=== PATIENT | female | born 1980 | race Caucasian/White ===

== ENCOUNTER 2021-03-24 18:21 | Inpatient (IN) | payer MEDICAID, OTHER ==
--- NOTE | 2021-03-24 19:28 | ED ---
General Adult HPI - General Source: patient, police, RN notes reviewed, old records reviewed Mode of arrival: ambulatory Limitations: altered mental status <Obi Srivastava - Last Filed: 03/24/21 22:25> <Prince Thomas - Last Filed: 03/25/21 02:43> - General Chief complaint: Psychiatric Symptoms Stated complaint: mental health Time Seen by Provider: 03/24/21 18:55 - History of Present Illness Initial comments: 40-year-old female brought in by police for psychiatric evaluation. She has been petitioned by her mother. There is concern for paranoia, possible self- harm. Patient is hyperverbal. Unable to give a clear history from the patient. (Obi Srivastava) - Related Data Home Medications Medication Instructions Recorded Confirmed ALPRAZolam [Xanax] 0.5 mg PO TID 03/24/21 03/24/21 Albuterol Nebulized [Ventolin 2.5 mg INHALATION RT-TID PRN 03/24/21 03/24/21 Nebulized] Albuterol Sulfate [Proair Hfa] 2 puff INHALATION RT-Q4H PRN 03/24/21 03/24/21 Atorvastatin [Lipitor] 40 mg PO HS 03/24/21 03/24/21 Benzoyl Peroxide 1 applic TOPICAL DAILY 03/24/21 03/24/21 Chantix 0.5mg Tablet 0.5 mg PO BID 03/24/21 03/24/21 FLUoxetine HCL [PROzac] 20 mg PO DAILY 03/24/21 03/24/21 Fluticasone Nasal [place] [Flonase 1 spray EA NOSTRIL DAILY 03/24/21 03/24/21 Nasal [place]] Loratadine [Claritin] 10 mg PO DAILY 03/24/21 03/24/21 Omeprazole 20 mg PO DAILY 03/24/21 03/24/21 Review of Systems ROS Other: All systems not noted in ROS Statement are negative. <Obi Srivastava - Last Filed: 03/24/21 22:25> ROS Other: All systems not noted in ROS Statement are negative. <Prince Thomas - Last Filed: 03/25/21 02:43> ROS Statement: Those systems with pertinent positive or pertinent negative responses have been documented in the HPI. Past Medical History Past Medical History: Unable to Obtain History of Any Multi-Drug Resistant Organisms: None Reported Past Surgical History: Unable to Obtain Past Psychological History: Bipolar, Schizophrenia Smoking Status: Former smoker Past Alcohol Use History: None Reported Past Drug Use History: None Reported <Obi Srivastava - Last Filed: 03/24/21 22:25> General Exam Limitations: altered mental status General appearance: alert, anxious Head exam: Present: atraumatic, normocephalic Eye exam: Present: normal appearance, PERRL ENT exam: Present: normal exam Neck exam: Present: normal inspection. Absent: tenderness, meningismus Respiratory exam: Present: normal lung sounds bilaterally. Absent: respiratory distress, wheezes Cardiovascular Exam: Present: normal rhythm, tachycardia GI/Abdominal exam: Present: soft. Absent: distended, tenderness, guarding Extremities exam: Present: normal inspection, normal capillary refill. Absent: pedal edema Neurological exam: Present: alert. Absent: motor sensory deficit Psychiatric exam: Present: agitated, anxious, manic Skin exam: Present: warm, dry, intact. Absent: cyanosis, diaphoretic <Obi Srivastava - Last Filed: 03/24/21 22:25> Course <Obi Srivastava - Last Filed: 03/24/21 22:25> <Prince Thomas - Last Filed: 03/25/21 02:43> Vital Signs 03/24/21 03/24/21 03/24/21 18:24 20:29 20:37 Temperature 97.4 F L Pulse Rate 95 120 H 116 H Respiratory 18 Rate Blood Pressure 157/84 O2 Sat by Pulse 99 Oximetry - Reevaluation(s) Reevaluation #1: 03/24/21 2300 Care signed out at shift change to Dr. Thomas awaiting EPS evaluation and treatment. (Obi Srivastava) Reevaluation #2: 03/25/21 02:43 Medical clear for psychiatric evaluation (Prince Thomas) Medical Decision Making <Prince Thomas - Last Filed: 03/25/21 02:43> - Medical Decision Making 40 female seen and evaluated psychiatry, patient be admitted for psychiatric evaluation and treatment (Prince Thomas) - Lab Data Lab Results 03/24/21 Range/Units 19:26 Urine Opiates Screen Not Detected (NotDetected) Ur Oxycodone Screen Not Detected (NotDetected) Urine Methadone Screen Not Detected (NotDetected) Ur Propoxyphene Screen Not Detected (NotDetected) Ur Barbiturates Screen Not Detected (NotDetected) U Tricyclic Antidepress Not Detected (NotDetected) Ur Phencyclidine Scrn Not Detected (NotDetected) Ur Amphetamines Screen Detected H (NotDetected) U Methamphetamines Scrn Detected H (NotDetected) U Benzodiazepines Scrn Detected H (NotDetected) Urine Cocaine Screen Not Detected (NotDetected) U Marijuana (THC) Screen Not Detected (NotDetected) Disposition <Obi Srivastava - Last Filed: 03/24/21 22:25> Is patient prescribed a controlled substance at d/c from ED?: No <Prince Thomas - Last Filed: 03/25/21 02:43> Clinical Impression: Psychosis, Monopolar missy Disposition: TRANSFER TO PSYCH HOSP/UNIT Condition: Fair Referrals: Vic Porras DO [Primary Care Provider] - 1-2 days
[2021-03-24 19:50] LABS: Amphetamine Screen,Urine Detected (NotDetected); Barbiturate Screen,Urine Not Detected (NotDetected); Benzodiazepines Screen,Urine Detected (NotDetected); Cocaine Screen,Urine Not Detected (NotDetected); Methadone Screen, Urine Not Detected (NotDetected); Opiate Screen,Urine Not Detected (NotDetected); Oxycodone Screen, Urine Not Detected (NotDetected); Phencyclidine Screen,Urine Not Detected (NotDetected); Tricyclic Antidepressant,Urine Not Detected (NotDetected); Urn Cannabinoid Scrn Not Detected (NotDetected)
[2021-03-24] MEDS ORDERED: ALBUTEROL NEBULIZED 2.5 MG/3 ML INHALATION STA (20:20)
[2021-03-24] MEDS ORDERED: LORazepam 2 MG/ML INJ IM STA (20:20)
[2021-03-24] MEDS ORDERED: NICOTINE 21MG/24HR PATCH TRANSDERM STA (22:40)
[2021-03-24] MEDS ORDERED: LORazepam 1 MG TAB PO STA (22:40)
[2021-03-25] MEDS ORDERED: MAGNESIUM HYDROXIDE 2,400 MG/10 ML CUP PO PRN (04:16)
[2021-03-25] MEDS ORDERED: LORazepam 2 MG/ML INJ IM PRN (04:16)
[2021-03-25] MEDS ORDERED: HALOPERIDOL LACTATE 5 MG/ML 1 ML VIAL IM PRN (04:16)
[2021-03-25] MEDS: ALBUTEROL HFA INHALER INHALATION PRN ×3 (05:31→21:17)
--- NOTE | 2021-03-25 06:33 | P.PN ---
Progress Note - Text Progress Note Date: 03/25/21 patient is currently sleeping and will be evaluated when awake
[2021-03-25] MEDS: LORATADINE 10 MG TAB PO SCH (08:14)
[2021-03-25] MEDS: FLUTICASONE 50MCG/SPRAY NASAL 16GM EA NOSTRIL SCH (08:15)
[2021-03-25] MEDS ORDERED: FLUoxetine HCL 20 MG CAP PO SCH (09:00)
[2021-03-25] MEDS ORDERED: VARENICLINE 0.5 MG TAB PO SCH (09:00)
[2021-03-25] MEDS ORDERED: NICOTINE 14MG/24HR PATCH TRANSDERM SCH (09:00)
[2021-03-25] MEDS ORDERED: traZODone HCL 50 MG TAB PO PRN (11:39)
[2021-03-25 11:47] LABS: Basophils # (A) 0.1 k/uL (0-0.2); Basophils % (A) 1 %; Eosinophils # (A) 0.1 k/uL (0-0.7); Eosinophils % (A) 1 %; HCT 37.8 % (34.0-46.0); HGB 13.1 gm/dL (11.4-16.0); Lymphocytes % (A) 19 %; MCH 32.2 pg (25.0-35.0); MCHC 34.8 g/dL (31.0-37.0); MCV 92.7 fL (80.0-100.0); Mean Platelet Volume 8.1; Monocytes # (A) 0.5 k/uL (0-1.0); Monocytes % (A) 4 %; Neutrophils # (A) 7.9 k/uL (1.3-7.7); Neutrophils % (A) 74 %; Platelet Count 309 k/uL (150-450); RBC 4.08 m/uL (3.80-5.40); RDW 13.3 % (11.5-15.5); WBC 10.7 k/uL (3.8-10.6)
[2021-03-25 12:13] LABS: ALT 51 U/L (4-34); AST 46 U/L (14-36); African American GFR (CKD) >90 (>60 ml/min/1.73 sqM); Albumin 4.2 g/dL (3.5-5.0); Alkaline Phosphatase 113 U/L (38-126); Anion Gap 8 mmol/L; Bilirubin,Unconjugated 0.5 mg/dL (0.0-1.1); Blood Urea Nitrogen 12 mg/dL (7-17); Calcium 9.9 mg/dL (8.4-10.2); Carbon Dioxide 21 mmol/L (22-30); Chloride 109 mmol/L (98-107); Glucose 102 mg/dL (74-99); Non-African American GFR(CKD) >90 (>60 ml/min/1.73 sqM); Potassium 4.2 mmol/L (3.5-5.1); Sodium 138 mmol/L (137-145); Total Bilirubin 0.5 mg/dL (0.2-1.3); Total Protein 6.7 g/dL (6.3-8.2)
[2021-03-25] MEDS: NICOTINE 14MG/24HR PATCH TRANSDERM SCH (13:09)
[2021-03-25] MEDS: LORazepam 1 MG TAB PO PRN ×2 (13:09→22:22)
[2021-03-25] MEDS: PALIPERIDONE 3 MG TAB.ER.24 PO SCH (13:09)
--- NOTE | 2021-03-25 13:35 | P.HP ---
Psychiatric H&P - . H&P Date: 03/25/21 History & Physical: Allergies Allergy/AdvReac Type Severity Reaction Status Date / Time No Known Allergies Allergy Verified 03/25/21 04:16 Vital Signs Temp 97.9 F 03/25/21 09:18 Pulse 85 03/25/21 04:58 Resp 18 03/25/21 04:58 BP 152/79 03/25/21 04:58 Pulse Ox 99 03/25/21 04:58 Intake & Output 03/24/21 03/25/21 03/25/21 18:59 06:59 18:59 Weight 74.843 kg 80.286 kg Laboratory Last Values Urine Opiates Screen Not Detected (NotDetected) 03/24/21 19:26 Ur Oxycodone Screen Not Detected (NotDetected) 03/24/21 19:26 Urine Methadone Screen Not Detected (NotDetected) 03/24/21 19:26 Ur Propoxyphene Screen Not Detected (NotDetected) 03/24/21 19:26 Ur Barbiturates Screen Not Detected (NotDetected) 03/24/21 19:26 U Tricyclic Antidepress Not Detected (NotDetected) 03/24/21 19:26 Ur Phencyclidine Scrn Not Detected (NotDetected) 03/24/21 19:26 Ur Amphetamines Screen Detected (NotDetected) H 03/24/21 19:26 U Methamphetamines Scrn Detected (NotDetected) H 03/24/21 19:26 U Benzodiazepines Scrn Detected (NotDetected) H 03/24/21 19:26 Urine Cocaine Screen Not Detected (NotDetected) 03/24/21 19:26 U Marijuana (THC) Screen Not Detected (NotDetected) 03/24/21 19:26 Coronavirus (PCR) Not Detected (Not Detectd) 03/25/21 02:10 03/25/21 11:41 IDENTIFYING DATA: Patient is a 40 -year-old female currently lives in a house with her boyfriend, has no kids and currently works as an entertainment organizer. HPI: Patient presented to the hospital yesterday prodded by the police for a psychiatric evaluation. Patient was petitioned by her mother. Patient apparently was paranoid and possibly "self-harm" was reported in the ER note. Is also reported the patient was hyperverbal. She had a UDS which was positive for methamphetamine and benzodiazepines. Patient was seen today by bid writer in the hallways and was hyperverbal, bizarre had poor hygiene however was agreeable to speak to bid writer. She was carrying around several papers in her hand and had pressured speech. She spoke about taking her boyfriend out of the house and "gi ving him many chances" and also spoke that he moved back in. She had mainly loose associations and made bizarre statements about her boyfriend and her parents. She spoke about her job and bucking "famous [employer]s". She denied adamantly using any drugs including methamphetamine. She states that her mood has been "okay" and is denying any depression at this time. She claims that she is having racing thoughts however has been having fair sleep and fair appetite. She has very poor insight and judgment. Patient denies any suicidal or homicidal ideations intent or plan. At this time patient denies any auditory or visual hallucinations. She admits to no recreational drug use. PAST PSYCHIATRIC HISTORY: Patient states that she has a history of bipolar, ADHD and panic attacks. Patient was previously on Prozac and Xanax claims that she was being prescribed this by her PCP. Patient denies any previous psychiatric hospitalizations. Patient denies any psychiatric outpatient follow-up. Patient denies any history of suicide attempts in the past. She claims that she is at "many therapists" in the past. PMH:denies ALLERGIES: as per EMR CHEMICAL DEPENDENCY HISTORY: as per HPI FAMILY PSYCHIATRIC/SUBSTANCE USE HISTORY: Claims that her father was a drug abuser. SOCIAL HISTORY: Patient was born and raised in [facility]. She states that she completed up to ninth grade in school. She is denying any legal history. She states that she currently lives in a house with her boyfriend has no kids and works as an entertainment organizer. MENTAL STATUS EXAM: General Appearance: Patient appears to be disheveled appearance, poor hygiene and grooming, older than stated age is alert, difficult to redirect and bizarre. Patient appears to have poor hygiene and grooming. Behavior: Patient is seated without any agitated behavior. Bizarre and intrusive Speech: Patient's speech is pressured Mood/Affect: Patient reports their mood is "okay", affect is congruent and labile Suicidality/Homicidality: Patient denies having any homicidal ideation intent or plan. Denies any suicidal ideations intent or plan Perceptions: Patient denies any visual hallucinations and denies any auditory hallucinations Though content/process: Patient is tangential, rambles. Loose associations. Bizarre statements. Memory and concentration: AOX3, grossly intact for the purposes of this session. Can spell "WORLD" backwards Judgment and insight: poor STRENGTHS/WEAKNESSES: strength is that patient is resilient. 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 Patient has signed adult voluntary form and medication consent and is placed in patient's chart. A second certification was completed and along with petition will be filed for court. -Medications : Will start patient on paliperidone by mouth 3 mg daily for mood stabilization/psychosis. Consider adding mood stabilizer including lithium versus Depakote tomorrow if needed. Added trazodone 50 mg daily at bedtime for sleep. -Ativan and Haldol PRN for agitation/aggression -Patient was counselled on substance abuse -Patient was informed of the risks, benefits and side effects of the medication and patient verbally consented to taking the medications. Patient signed med consent form and was placed in chart. -Internal Medicine consult to perform medical evaluation and physical. -NRT - nicotine patch -SW on board for discharge planning. Encourage patient to participate in groups to work on coping skills. Will await deferral and court date. 03/25/21 13:27
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
[2021-03-25 19:09] LABS: Chol/HDL Ratio 3.38; Cholesterol 186 mg/dL (0-200); LDL Cholesterol,Calculated 109.2 mg/dL (0.0-131.0)
[2021-03-25] MEDS: traZODone HCL 50 MG TAB PO SCH (21:16)
[2021-03-25] MEDS: ATORVASTATIN 10 MG TAB PO SCH (21:16)
[2021-03-25] MEDS: BACITRACIN OINT 1 EACH PACKET TOPICAL SCH ×2 (21:18→22:00)
[2021-03-25] MEDS: ACETAMINOPHEN TAB 325 MG TAB PO PRN (22:22)
[2021-03-25 23:00] LABS: Hemoglobin A1C 5.7 % (4.0-6.0)
[2021-03-26] MEDS: PALIPERIDONE 3 MG TAB.ER.24 PO SCH ×4 (08:37→20:59)
[2021-03-26] MEDS: NICOTINE 14MG/24HR PATCH TRANSDERM SCH (08:37)
[2021-03-26] MEDS: FLUTICASONE 50MCG/SPRAY NASAL 16GM EA NOSTRIL SCH (08:37)
[2021-03-26] MEDS: BACITRACIN OINT 1 EACH PACKET TOPICAL SCH ×3 (08:37→21:00)
[2021-03-26] MEDS: LORATADINE 10 MG TAB PO SCH (08:37)
[2021-03-26] MEDS: ALBUTEROL HFA INHALER INHALATION PRN ×2 (08:43→15:17)
[2021-03-26] MEDS: ACETAMINOPHEN TAB 325 MG TAB PO PRN ×2 (12:49→20:57)
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
[2021-03-26] MEDS: MAG HYDROX/AL HYDROX/SIMETH 30 ML CUP PO PRN (20:56)
[2021-03-26] MEDS: ATORVASTATIN 10 MG TAB PO SCH (20:57)
[2021-03-26] MEDS: traZODone HCL 50 MG TAB PO SCH (20:57)
[2021-03-27] MEDS: ALBUTEROL HFA INHALER INHALATION PRN ×4 (07:16→21:58)
[2021-03-27] MEDS: LORATADINE 10 MG TAB PO SCH (08:56)
[2021-03-27] MEDS: NICOTINE 14MG/24HR PATCH TRANSDERM SCH (08:56)
[2021-03-27] MEDS: PALIPERIDONE 3 MG TAB.ER.24 PO SCH ×3 (08:57→20:35)
[2021-03-27] MEDS: FLUTICASONE 50MCG/SPRAY NASAL 16GM EA NOSTRIL SCH (08:59)
[2021-03-27] MEDS: ACETAMINOPHEN TAB 325 MG TAB PO PRN ×2 (09:00→14:32)
[2021-03-27] MEDS: BACITRACIN OINT 1 EACH PACKET TOPICAL SCH ×3 (09:07→21:04)
--- NOTE | 2021-03-27 16:47 | PN ---
PROGRESS NOTE DATE OF SERVICE: 03/27/2021. CHIEF COMPLAINT: The patient had paranoid thinking. She had bizarre behavior. She was intense and hyperverbal. INTERVAL HISTORY: Patient has been doing fair. She has continued with a fair amount of intensity in her manner. She attended one group yesterday at 12:30. It was noted that she was quite intense in her manner. She was intrusive. She talked about safety issues and people not wanting to harm themselves or others. It is noted that this morning at 0:17 am, the patient received Haldol 4 mg p.o. for acute anxiety. She was noted to appear manic. She said the Haldol helped. Today, she has been up. She comes out in the day area. She attended one group today and seemed to do fairly well with that group having shown improvement over her previous group. She still has an intense manner. She will talk with some degree of pressured speech and flight of ideas. She is very insistent on the idea that she needs to be discharged. She thinks that her medications have been helping at least to some extent. When we talked about family issues, and I reviewed the conversation I had with the patient's sister, Natalia, the patient had a different viewpoint on most of the details. She said that when Natalia and her mother came to the house and felt that things were very disorganized, her view of it was that she was working to do a number of different things in her house to get things organized. The result was that there were a lot of different items that were all out together, though she was trying to put things in some kind of order. She was vague about the issues with the police being called and the subsequent events of that time. The sister had noted that she was apparently transporting the patient to the hospital. The patient said she had a different understanding of that situation. In the midst of it, she asked to stop to go to the bathroom and then she walked away. She said that she was misled by the family and she needed to gain some distance, though it was noted that the event did lead up to police being called and the patient somehow being chased down in the [place] before being brought to the hospital. The patient said that in regard to all of the things in the house that apparently were in disarray, she had a different review of all that and believed that she was doing things to take care of her personal business. She tolerates her psychotropic medications. MENTAL STATUS: Patient sat with some restlessness. She gave good eye contact. She responded to questions appropriately, though often she talked at length and sometimes seemed to ramble. She would seem to be in agreement about some basic aspects of things I presented to her, though then would go on and talk in a contrary way. Her affect was intense. Her mood dysphoric. She seemed moderately distressed. It was difficult to assess for thought disorder. She gave no indication of thoughts of harm. Cognition was clear. ASSESSMENT: I will continue the current diagnosis and treatment plan. I will continue Invega, though increase the dose to 6 mg twice a day. Patient continues to show apparent manic symptoms in the face of significant Xanax withdrawal. We reviewed issues related to withdrawal. I provided her with a number of handouts about withdrawal as well as nonpharmacologic interventions to manage withdrawal and other stress issues. We discussed discharge planning. We will focus on stabilization and discharge planning. SAMEER / YESSICA: [id number] /
[2021-03-27] MEDS: HALOPERIDOL LACTATE 5 MG/ML 1 ML VIAL IM PRN (18:32)
[2021-03-27] MEDS: ATORVASTATIN 10 MG TAB PO SCH (20:35)
[2021-03-27] MEDS: traZODone HCL 50 MG TAB PO SCH (20:35)
[2021-03-27] MEDS ORDERED: HALOPERIDOL LACTATE 5 MG/ML 1 ML VIAL IM STA (21:36)
[2021-03-27] MEDS ORDERED: LORazepam 2 MG/ML INJ IM STA (21:37)
[2021-03-28] MEDS: NICOTINE 14MG/24HR PATCH TRANSDERM SCH (08:58)
[2021-03-28] MEDS: BACITRACIN OINT 1 EACH PACKET TOPICAL SCH ×3 (08:58→20:13)
[2021-03-28] MEDS: LORATADINE 10 MG TAB PO SCH (08:58)
[2021-03-28] MEDS: FLUTICASONE 50MCG/SPRAY NASAL 16GM EA NOSTRIL SCH (08:58)
[2021-03-28] MEDS: PALIPERIDONE 3 MG TAB.ER.24 PO SCH ×2 (08:58→20:06)
[2021-03-28] MEDS: ALBUTEROL HFA INHALER INHALATION PRN ×3 (09:00→20:07)
[2021-03-28] MEDS: ACETAMINOPHEN TAB 325 MG TAB PO PRN ×2 (11:27→21:31)
[2021-03-28 17:57] LABS: Appearance,Urine Cloudy (Clear); Bacteria,Urine Rare /hpf; Bilirubin,Urine Negative (Negative); Blood,Urine Negative (Negative); Color,Urine Light Yellow; Glucose,Urine (UA) Negative (Negative); Ketones,Urine Negative (Negative); Leukocyte Esterase,Urine Negative (Negative); Nitrite,Urine Negative (Negative); PH, Urine 6.5 (5.0-8.0); Protein,Urine Negative (Negative); RBC,Urine 1 /hpf (0-5); Specific Gravity,Urine 1.017 (1.001-1.035); Squamous Epithelial Cell,Urine 8 /hpf (0-4); Urobilinogen,Urine <2.0 mg/dL (<2.0); WBC,Urine <1 /hpf (0-5)
[2021-03-28] MEDS: ATORVASTATIN 10 MG TAB PO SCH (20:06)
[2021-03-28] MEDS: traZODone HCL 50 MG TAB PO SCH (20:06)
--- NOTE | 2021-03-28 20:56 | PN ---
PROGRESS NOTE DATE OF SERVICE: 03/27/2021. CHIEF COMPLAINT: The patient had paranoid thinking. She had bizarre behavior. She was intense and hyperverbal. INTERVAL HISTORY: Patient has been doing fair. She generally seemed to do somewhat better yesterday. She comes out in the day area. She does socialize with others. At times, she can be somewhat intense and hyperverbal. She attended one group yesterday briefly. It is noted that at 630 in the evening she came to the door and said that she is feeling manic. She was quite intense. She was in a somewhat agitated state. She received Haldol 5 mg IM at 6:30 pm. She seemed to show some improvement after that. She continues on her Invega. She said she slept fairly well last night. Today she has been up. She attended 2 groups today and seemed to do fairly well in the groups. She seems to have a reserved manner more than not when she is in the group. It is noteworthy that today at 7 in the evening when I saw her, she said she has been feeling intense. She said she has been monitoring herself and says that about this time of day she tends to get wound up. She says she feels a little more contained today than she did yesterday, though recognizes that much of the feelings the same. She appears to tolerate her psychotropic medications. MENTAL STATUS: Patient sat with some restlessness. She gave fairly good eye contact. She answered questions with clear thoughts. It is noteworthy that she was just a little pressured in her speech. Her affect was intense. Her mood somewhat elevated and at other times seeming a little distressed. She shows signs of thought disorder relating to her bipolar condition. She voices no thoughts of harm. Cognition is clear. ASSESSMENT: I will continue the current diagnosis and treatment plan. The patient shows diurnal mood variation with elevated mood around early evening time. I will switch her Invega to 6 mg at 9 in the morning and 6 mg at 6 in the evening. We will see if the Invega helps bring down some of her intensity rather than needing to move towards p.r.n. I discussed medication issues including the change in her medication schedule. We will focus on stabilization and discharge planning. MMODL / IJN: [id number] /
[2021-03-28] MEDS: MAG HYDROX/AL HYDROX/SIMETH 30 ML CUP PO PRN (21:31)
[2021-03-29] MEDS: BACITRACIN OINT 1 EACH PACKET TOPICAL SCH ×3 (05:16→21:47)
[2021-03-29] MEDS: FLUTICASONE 50MCG/SPRAY NASAL 16GM EA NOSTRIL SCH (08:08)
[2021-03-29] MEDS: NICOTINE 14MG/24HR PATCH TRANSDERM SCH (08:09)
[2021-03-29] MEDS: LORATADINE 10 MG TAB PO SCH (08:09)
[2021-03-29] MEDS: PALIPERIDONE 3 MG TAB.ER.24 PO SCH (08:09)
[2021-03-29] MEDS: ALBUTEROL HFA INHALER INHALATION PRN (08:10)
--- NOTE | 2021-03-29 09:35 | P.PN ---
Progress Note - Text Progress Note Date: 03/29/21 Interval History: Patient was seen wandering the hallways and was directable and agreeable to benito rosen with feature writer in the office. Patient today was fairly bizarre and loose in associations with her thought process. She had a difficult time engaging in conversation and was acting fairly bizarre. She put down a piece of paper with a playing card that was cut in a specific design and when asked about it she was not able to explain what it meant. She states "it's a diagram". She claims that she was having racing thoughts and not able to sleep last night at all. At this time patient denies any suicidal or homical ideations, intent or plan. Patient denies any auditory, visual hallucinations. Patient has fairly poor insight and judgment. She believes that she does not need to be in the hospital. Patient denies any side effects from the medications and has been compliant with meds. Mental Status Exam: General Appearance: Patient appears to be overweight, stated age is alert, difficult to redirect and uncooperative Behavior: Patient is calmly seated without any agitated behavior. Bizarre Speech: Patient's speech is fluent and nonpressured. Mood/Affect: Mood is "okay", affect is congruent and constricted. Suicidality/Homicidality: Patient denies having any suicidal or homicidal ideation intent or plan. Perceptions: Patient denies any visual hallucinations and denies any auditory hallucinations Though content/process: Bizarre thought content. Loose associations. Rambles. Memory and concentration: AOX3, grossly intact for the purposes of this session Judgment and insight: Poor Assessment Psychosis unspecified History of bipolar disorder Methamphetamine abuse Nicotine dependence Plan: -Patient continues to meet criteria for inpatient psychiatric admission for symptom stabilization and safety. Patient has not signed adult voluntary form and medication consent and was placed in patient's chart. -Medications: Discontinued paliperidone at this time due to ineffectiveness and switch patient onto Prolixin 2 mg twice a day for psychosis. Increase trazodone to 100 mg daily at bedtime for sleep. -When necessary Ativan and Haldol for agitation/aggression. -NRT - nicotine patch -SW on board for discharge planning. Encouraged the patient to participate in milieu. The patient deferred with her clarifier operator helper.
[2021-03-29] MEDS: HALOPERIDOL LACTATE 5 MG/ML 1 ML VIAL IM PRN (20:16)
[2021-03-29] MEDS: ATORVASTATIN 10 MG TAB PO SCH (20:17)
[2021-03-29] MEDS ORDERED: LORazepam 2 MG/ML INJ IM PRN (20:31)
[2021-03-29] MEDS ORDERED: LORazepam 2 MG/ML INJ ONE (20:31)
[2021-03-29] MEDS ORDERED: traZODone HCL 100 MG TAB PO SCH (21:00)
[2021-03-30] MEDS: FLUTICASONE 50MCG/SPRAY NASAL 16GM EA NOSTRIL SCH (09:35)
[2021-03-30] MEDS: BACITRACIN OINT 1 EACH PACKET TOPICAL SCH ×3 (09:36→20:26)
[2021-03-30] MEDS: LORATADINE 10 MG TAB PO SCH (09:36)
[2021-03-30] MEDS: NICOTINE 14MG/24HR PATCH TRANSDERM SCH (09:36)
[2021-03-30] MEDS: ACETAMINOPHEN TAB 325 MG TAB PO PRN ×3 (10:00→23:29)
[2021-03-30] MEDS ORDERED: diphenhydrAMINE 25 MG CAP PO PRN (10:27)
--- NOTE | 2021-03-30 10:31 | P.PN ---
Progress Note - Text Progress Note Date: 03/30/21 Interval History: Patient was seen lying in her bed this morning and was directable and agreeable to speak with medical technical writer. Patient today appeared to be mildly more cooperative initially and less confused today. She was not responding to internal stimuli during the conversation. She appeared to be more appropriate. She was however fairly bizarre later on in conversation and was fairly argumentative with medical technical writer. She claims that "I didn't sign anything from the fruit dryer and I want to go to court". She claims that she feels the staff is "psychologically messing with me" and believes that they are changing around her room to "get in my head". Patient's insight and judgment continue to be fairly poor. She claims that she was having racing thoughts and not able to sleep last night at all. At this time patient denies any suicidal or homical ideations, intent or plan. Patient denies any auditory, visual hallucinations. She believes that she does not need to be in the hospital. Patient denies any side effects from the medications and has been compliant with meds. Mental Status Exam: General Appearance: Patient appears to be overweight, stated age is alert, initially cooperative however becomes bizarre and argumentative. Behavior: Patient is calmly seated without any agitated behavior. Bizarre at times, improving mildly Speech: Patient's speech is fluent and nonpressured. Mood/Affect: Mood is "okay", affect is congruent and constricted. Suicidality/Homicidality: Patient denies having any suicidal or homicidal ideation intent or plan. Perceptions: Patient denies any visual hallucinations and denies any auditory hallucinations Though content/process: Loose associations. Rambles, improving mildly, mild paranoia. Memory and concentration: AOX3, grossly intact for the purposes of this session Judgment and insight: Poor, improving mildly Assessment Psychosis unspecified History of bipolar disorder Methamphetamine abuse Nicotine dependence Plan: -Patient continues to meet criteria for inpatient psychiatric admission for symptom stabilization and safety. Patient has not signed adult voluntary form and medication consent and was placed in patient's chart. -Medications: Increased Prolixin 3 mg twice a day for psychosis. Increase trazodone to 150 mg daily at bedtime for sleep. Added Benadryl 25 mg daily at bedtime when necessary for sleep. -When necessary Ativan and Haldol for agitation/aggression. -NRT - nicotine patch -SW on board for discharge planning. Encouraged the patient to participate in milieu. The patient deferred with her associate attorney.
[2021-03-30] MEDS: ALBUTEROL HFA INHALER INHALATION PRN ×2 (17:22→21:31)
[2021-03-30] MEDS: ATORVASTATIN 10 MG TAB PO SCH (20:25)
[2021-03-30] MEDS: ARTIFICIAL TEARS-HYPROMELLOSE DROPS 15 ML BTL LEFT EYE PRN (20:25)
[2021-03-30] MEDS ORDERED: traZODone HCL 50 MG TAB PO SCH (21:00)
[2021-03-30] MEDS: MAG HYDROX/AL HYDROX/SIMETH 30 ML CUP PO PRN (23:29)
[2021-03-31] MEDS: LORazepam 1 MG TAB PO PRN ×3 (01:47→23:32)
[2021-03-31] MEDS: ARTIFICIAL TEARS-HYPROMELLOSE DROPS 15 ML BTL LEFT EYE PRN ×3 (01:47→20:59)
[2021-03-31] MEDS ORDERED: diphenhydrAMINE 50 MG CAP PO PRN (09:07)
[2021-03-31] MEDS: NICOTINE 14MG/24HR PATCH TRANSDERM SCH (09:13)
[2021-03-31] MEDS: BACITRACIN OINT 1 EACH PACKET TOPICAL SCH ×3 (09:14→21:01)
[2021-03-31] MEDS: LORATADINE 10 MG TAB PO SCH (09:14)
[2021-03-31] MEDS: FLUTICASONE 50MCG/SPRAY NASAL 16GM EA NOSTRIL SCH (09:15)
--- NOTE | 2021-03-31 09:15 | P.PN ---
Progress Note - Text Progress Note Date: 03/31/21 Interval History: Patient was seen lying in her bed this morning and was directable and agreeable to speak with telegraphic typewriter operator chief. Patient today appeared to be mildly more cooperative with telegraphic typewriter operator chief and more appropriate. She was not responding to internal stimuli during the conversation. Patient's thought content was not bizarre today and appropriate to context. She spoke about speaking to her mother and spoke about discharge. She also claims that she is agreeable to continue on with the medications as prescribed and states that she is agreeable to continue on with treatment. She claims that she does have the court hearing scheduled for today. Patient's insight and judgment have been improving. She claims that she was having racing thoughts and not able to sleep last night very much and required Ativan when necessary. Patient also was complaining of stiffness in her legs causing her to walk slower. At this time patient denies any suicidal or homical ideations, intent or plan. Patient denies any auditory, visual hallucinations. Mental Status Exam: General Appearance: Patient appears to be overweight, stated age is alert, more cooperative today. Appropriate. Behavior: Patient is calmly seated without any agitated behavior. Appropriate Speech: Patient's speech is fluent and nonpressured. Mood/Affect: Mood is "good", affect is congruent Suicidality/Homicidality: Patient denies having any suicidal or homicidal ideation intent or plan. Perceptions: Patient denies any visual hallucinations and denies any auditory hallucinations Though content/process: Appropriate, not endorsing any delusions today. More goal oriented. Memory and concentration: AOX3, grossly intact for the purposes of this session Judgment and insight: improving mildly Assessment Psychosis unspecified History of bipolar disorder Methamphetamine abuse Nicotine dependence Plan: -Patient continues to meet criteria for inpatient psychiatric admission for symptom stabilization and safety. Patient has not signed adult voluntary form and medication consent and was placed in patient's chart. -Medications: continue with Prolixin 3 mg twice a day for psychosis. Increase trazodone to 200 mg daily at bedtime for sleep. increased Benadryl 50 mg daily at bedtime for sleep. Added Cogentin 1 mg daily for EPS. -When necessary Ativan and Haldol for agitation/aggression. -NRT - nicotine patch -SW on board for discharge planning. Encouraged the patient to participate in milieu. The patient deferred with her deputy prosecuting attorney. Sw to contact family today and prepare for d/c tomorrow.
[2021-03-31] MEDS: ALBUTEROL HFA INHALER INHALATION PRN ×2 (09:18→17:44)
[2021-03-31] MEDS: BENZTROPINE MESYLATE 1 MG TAB PO SCH (09:58)
[2021-03-31] MEDS: ACETAMINOPHEN TAB 325 MG TAB PO PRN ×2 (13:39→17:42)
[2021-03-31] MEDS: MAG HYDROX/AL HYDROX/SIMETH 30 ML CUP PO PRN (17:42)
[2021-03-31] MEDS ORDERED: diphenhydrAMINE 50 MG CAP PO SCH (21:00)
[2021-03-31] MEDS ORDERED: traZODone HCL 100 MG TAB PO SCH (21:00)
[2021-03-31] MEDS: ATORVASTATIN 10 MG TAB PO SCH (21:01)
[2021-04-01 06:16] VITALS: TEMP 97.8
--- NOTE | 2021-04-01 09:00 | P.DS ---
Providers Date of admission: 03/25/21 03:57 Expected date of discharge: 04/01/21 Attending physician: Travis Danielle MD Consults: 03/25/21 04:16 Consult Physician Routine Consulting Provider: [facility] Consult Reason/Comments: H & P Do you want consulting provider notified?: Yes, Notify in am Primary care physician: Vic Porras - Discharge Diagnosis(es) (1) Unspecified psychosis Current Visit: Yes Status: Acute Priority: High (2) History of bipolar disorder Current Visit: Yes Status: Acute Priority: Medium (3) Methamphetamine abuse Current Visit: Yes Status: Acute Priority: Medium (4) Nicotine dependence Current Visit: Yes Status: Acute Priority: Low Hospital Course: Admission HPI: Admission note was completed by fiction and nonfiction prose writer "Patient is a 40 -year-old female currently lives in a house with her boyfriend, has no kids and currently works as an entertainment organizer. Patient presented to the hospital yesterday prodded by the police for a psychiatric evaluation. Patient was petitioned by her mother. Patient apparently was paranoid and possibly "self-harm" was reported in the ER note. Is also reported the patient was hyperverbal. She had a UDS which was positive for methamphetamine and benzodiazepines. Patient was seen today by fiction and nonfiction prose writer in the hallways and was hyperverbal, bizarre had poor hygiene however was agreeable to speak to fiction and nonfiction prose writer. She was carrying around several papers in her hand and had pressured speech. She spoke about taking her boyfriend out of the house and "giving him many chances" and also spoke that he moved back in. She had mainly loose associations and made bizarre statements about her boyfriend and her parents. She spoke about her job and bucking "famous [employer]s". She denied adamantly using any drugs including methamphetamine. She states that her mood has been "okay" and is denying any depression at this time. She claims that she is having racing thoughts however has been having fair sleep and fair appetite. She has very poor insight and judgment. Patient denies any suicidal or homicidal ideations intent or plan. At this time patient denies any auditory or visual hallucinations. She admits to no recreational drug use." Hospital course: Upon admission to the unit patient was initially bizarre and psychotic with racing thoughts. Patient was however not agreeable to take medications initially or sign voluntary and a second certificate was completed and filed to the courts. Patient ended up not deferring court and on 03/31, patient had a full court hearing which resulted in a JATINDER. Patient was initially bizarre however with treatment got along well with other patients on the unit and followed unit protocol. Patient was started on Zyprexa and titrated up however patient did not respond well to this medication and became more confused therefore it was switched to Prolixin by mouth, 3 mg twice a day for psychosis/mood stabilization. Patient was also started on trazodone 200 mg daily at bedtime for insomnia/mood. Patient was also started on 50 mg daily at bedtime of Benadryl for insomnia and also 1 mg of Cogentin daily for EPS. Patient spoke of her stressors and engaged in therapy both group and individual. Patient was also seen by medical team for history and physical exam. Throughout the course of the hospitalization patient gradually improved with regards to psychosis, anxiety and mood lability, sleep and became more future oriented with improved insight and judgment. On the day of discharge patient denied any suicidal or homicidal ideations intent or plan denied any auditory or visual hallucinations. Patient endorsed wanting to live for her health and her future. The patient denied any access to guns or weapons. Patient denied any paranoia and did not endorse any delusions. Patient does have a significant history of substance abuse and was counseled on abstaining from all substances including alcohol and marijuana. Patient was offered however declined inpatient substance-abuse rehab. Patient was also counseled on the medications and need for regular compliance and was encouraged to follow-up with their outpatient appointment for mental health and also for primary care. Prior to discharge a family meeting will be arranged by social director to answer any questions and ensure safety upon discharge. Mental status exam: General Appearance: Patient appears to be stated age is alert, pleasant, and cooperative. Patient is in no acute distress and has improved hygiene and grooming Behavior: Patient is calmly seated without any agitated behavior. Speech: Patient's speech is fluent and nonpressured. Mood/Affect: Patient reports their mood is "better", affect is congruent and euthymic. Suicidality/Homicidality: Patient denies having any suicidal or homicidal ideation intent or plan. Perceptions: Patient denies any auditory or visual hallucinations. Though content/process: There is no evidence of any delusional thought content and thought process is linear and goal-directed. more future oriented Memory and concentration: AOX3, grossly intact for the purposes of this session. Can spell "WORLD" backwards correctly. Judgment and insight: chronically poor, however has improved with guarded prognosis Impression: Psychosis unspecified History of bipolar disorder Methamphetamine abuse Nicotine dependence Plan: -Continue with discharge today as patient has improved and stabilized psychiatrically and is not currently an imminent threat to herself and/or others. Patient will remain at chronically elevated risk for harm to self and/or others due to her impulsivity and substance abuse. -Continue medications: Prolixin by mouth 3 mg twice a day for psychosis/mood stabilization, trazodone 200 mg daily at bedtime for insomnia/mood, Benadryl 50 mg daily at bedtime for insomnia, 1 mg Cogentin daily for EPS -Patient was counseled on the need for medication compliance and appropriate follow-up at mental health and also primary care for medical issues. Patient verbalized understanding and agreed. -Social work to arrange for and conduct family meeting to ensure safety upon discharge and answer any questions/concerns. Social work also to arrange for patients follow up appointments with [facility] for psychiatric care along with follow up with primary care provider. -Patient counseled on abstaining from recreational drugs and marijuana and a lcohol. Was informed/educated on the adverse effects on their physical and mental health. Patient verbally agreed and understood. Patient was offered substance abuse treatment however declined at this time. -Patient was instructed to return to the hospital or seek immediate medical care if their psychiatric or medical symptoms do worsen or reoccur. Allergies Allergy/AdvReac Type Severity Reaction Status Date / Time No Known Allergies Allergy Verified 03/25/21 04:16 Laboratory Results WBC 10.7 k/uL (3.8-10.6) H 03/25/21 11:11 RBC 4.08 m/uL (3.80-5.40) 03/25/21 11:11 Hgb 13.1 gm/dL (11.4-16.0) 03/25/21 11:11 Hct 37.8 % (34.0-46.0) 03/25/21 11:11 MCV 92.7 fL (80.0-100.0) 03/25/21 11:11 MCH 32.2 pg (25.0-35.0) 03/25/21 11:11 MCHC 34.8 g/dL (31.0-37.0) 03/25/21 11:11 RDW 13.3 % (11.5-15.5) 03/25/21 11:11 Plt Count 309 k/uL (150-450) 03/25/21 11:11 MPV 8.1 03/25/21 11:11 Neutrophils % 74 % 03/25/21 11:11 Lymphocytes % 19 % 03/25/21 11:11 Monocytes % 4 % 03/25/21 11:11 Eosinophils % 1 % 03/25/21 11:11 Basophils % 1 % 03/25/21 11:11 Neutrophils # 7.9 k/uL (1.3-7.7) H 03/25/21 11:11 Lymphocytes # 2.0 k/uL (1.0-4.8) 03/25/21 11:11 Monocytes # 0.5 k/uL (0-1.0) 03/25/21 11:11 Eosinophils # 0.1 k/uL (0-0.7) 03/25/21 11:11 Basophils # 0.1 k/uL (0-0.2) 03/25/21 11:11 Sodium 138 mmol/L (137-145) 03/25/21 11:11 Potassium 4.2 mmol/L (3.5-5.1) 03/25/21 11:11 Chloride 109 mmol/L (98-107) H 03/25/21 11:11 Carbon Dioxide 21 mmol/L (22-30) L 03/25/21 11:11 Anion Gap 8 mmol/L 03/25/21 11:11 BUN 12 mg/dL (7-17) 03/25/21 11:11 Creatinine 0.71 mg/dL (0.52-1.04) 03/25/21 11:11 Est GFR (CKD-EPI)AfAm >90 (>60 ml/min/1.73 sqM) 03/25/21 11:11 Est GFR (CKD-EPI)NonAf >90 (>60 ml/min/1.73 sqM) 03/25/21 11:11 Glucose 102 mg/dL (74-99) H 03/25/21 11:[address] Glu mg/dL 117 03/25/21 11:11 Hemoglobin A1c 5.7 % (4.0-6.0) 03/25/21 11:11 Calcium 9.9 mg/dL (8.4-10.2) 03/25/21 11:11 Total Bilirubin 0.5 mg/dL (0.2-1.3) 03/25/21 11:11 Conjugated Bilirubin 0.0 mg/dL (0.0-0.3) 03/25/21 11:11 Unconjugated Bilirubin 0.5 mg/dL (0.0-1.1) 03/25/21 11:11 Delta Bilirubin 0.0 mg/dL (0.0-0.2) 03/25/21 11:11 AST 46 U/L (14-36) H 03/25/21 11:11 ALT 51 U/L (4-34) H 03/25/21 11:11 Alkaline Phosphatase 113 U/L (38-126) 03/25/21 11:11 Total Protein 6.7 g/dL (6.3-8.2) 03/25/21 11:11 Albumin 4.2 g/dL (3.5-5.0) 03/25/21 11:11 Triglycerides 109.0 mg/dL (0.0-149.0) 03/25/21 11:11 Cholesterol 186 mg/dL (0-200) 03/25/21 11:11 LDL Cholesterol, Calc 109.2 mg/dL (0.0-131.0) 03/25/21 11:11 VLDL Cholesterol, Calc 21.80 mg/dL (5.00-40.00) 03/25/21 11:11 HDL Cholesterol 55.0 mg/dL (40.0-60.0) 03/25/21 11:11 Cholesterol/HDL Ratio 3.38 03/25/21 11:11 TSH 1.410 mIU/L (0.465-4.680) 03/25/21 11:11 Urine Color Light Yellow 03/28/21 17:44 Urine Appearance Cloudy (Clear) H 03/28/21 17:44 Urine pH 6.5 (5.0-8.0) 03/28/21 17:44 Ur Specific [place] 1.017 (1.001-1.035) 03/28/21 17:44 Urine Protein Negative (Negative) 03/28/21 17:44 Urine Glucose (UA) Negative (Negative) 03/28/21 17:44 Urine Ketones Negative (Negative) 03/28/21 17:44 Urine Blood Negative (Negative) 03/28/21 17:44 Urine Nitrite Negative (Negative) 03/28/21 17:44 Urine Bilirubin Negative (Negative) 03/28/21 17:44 Urine Urobilinogen <2.0 mg/dL (<2.0) 03/28/21 17:44 Ur Leukocyte Esterase Negative (Negative) 03/28/21 17:44 Urine RBC 1 /hpf (0-5) 03/28/21 17:44 Urine WBC <1 /hpf (0-5) 03/28/21 17:44 Ur Squamous Epith Cells 8 /hpf (0-4) H 03/28/21 17:44 Urine Bacteria Rare /hpf (None) H 03/28/21 17:44 Urine Opiates Screen Not Detected (NotDetected) 03/24/21 19:26 Ur Oxycodone Screen Not Detected (NotDetected) 03/24/21 19:26 Urine Methadone Screen Not Detected (NotDetected) 03/24/21 19:26 Ur Propoxyphene Screen Not Detected (NotDetected) 03/24/21 19:26 Ur Barbiturates Screen Not Detected (NotDetected) 03/24/21 19:26 U Tricyclic Antidepress Not Detected (NotDetected) 03/24/21 19:26 Ur Phencyclidine Scrn Not Detected (NotDetected) 03/24/21 19:26 Ur Amphetamines Screen Detected (NotDetected) H 03/24/21 19:26 U Methamphetamines Scrn Detected (NotDetected) H 03/24/21 19:26 U Benzodiazepines Scrn Detected (NotDetected) H 03/24/21 19:26 Urine Cocaine Screen Not Detected (NotDetected) 03/24/21 19:26 U Marijuana (THC) Screen Not Detected (NotDetected) 03/24/21 19:26 Coronavirus (PCR) Not Detected (Not Detectd) 03/25/21 02:10 Vital Signs Temp 97.8 F 04/01/21 06:15 Pulse 95 04/01/21 06:15 Resp 15 04/01/21 06:15 BP 95/54 04/01/21 06:15 Pulse Ox 98 03/31/21 10:02 Patient Condition at Discharge: Stable Plan - Discharge Summary New Discharge Prescriptions: New Benztropine Mesylate [Cogentin] 1 mg PO DAILY 30 Days tab Nicotine 14Mg/24Hr Patch [Habitrol] 1 patch TRANSDERM DAILY 30 Days patch fluPHENAZine [Prolixin] 3 mg PO BID 30 Days tab Acetaminophen Tab [Tylenol] 650 mg PO Q4HR PRN tab PRN Reason: Pain/Discomfort Artificial Tears-Hypromellose [Artificial Tear Drops] 2 drops LEFT EYE TID PRN #1 bottle PRN Reason: Dry Eye(S) traZODone HCL [Desyrel] 200 mg PO HS 30 Days tab Continue Atorvastatin [Lipitor] 40 mg PO HS Loratadine [Claritin] 10 mg PO DAILY Albuterol Nebulized [Ventolin Nebulized] 2.5 mg INHALATION RT-TID PRN PRN Reason: Shortness Of Breath Discontinued Albuterol Sulfate [Proair Hfa] 2 puff INHALATION RT-Q4H PRN PRN Reason: Shortness Of Breath FLUoxetine HCL [PROzac] 20 mg PO DAILY ALPRAZolam [Xanax] 0.5 mg PO TID No Action Omeprazole 20 mg PO DAILY Fluticasone Nasal [place] [Flonase Nasal [place]] 1 spray EA NOSTRIL DAILY Chantix 0.5mg Tablet 0.5 mg PO BID Benzoyl Peroxide 1 applic TOPICAL DAILY Discharge Medication List Albuterol Nebulized [Ventolin Nebulized] 2.5 mg INHALATION RT-TID PRN 03/24/21 [History] Atorvastatin [Lipitor] 40 mg PO HS 03/24/21 [History] Benzoyl Peroxide 1 applic TOPICAL DAILY 03/24/21 [History] Chantix 0.5mg Tablet 0.5 mg PO BID 03/24/21 [History] Fluticasone Nasal [place] [Flonase Nasal [place]] 1 spray EA NOSTRIL DAILY 03/24/21 [History] Loratadine [Claritin] 10 mg PO DAILY 03/24/21 [History] Omeprazole 20 mg PO DAILY 03/24/21 [History] Acetaminophen Tab [Tylenol] 650 mg PO Q4HR PRN tab 04/01/21 [Rx] Artificial Tears-Hypromellose [Artificial Tear Drops] 2 drops LEFT EYE TID PRN #1 bottle 04/01/21 [Rx] Benztropine Mesylate [Cogentin] 1 mg PO DAILY 30 Days tab 04/01/21 [Rx] Nicotine 14Mg/24Hr Patch [Habitrol] 1 patch TRANSDERM DAILY 30 Days patch 04/01/21 [Rx] fluPHENAZine [Prolixin] 3 mg PO BID 30 Days tab 04/01/21 [Rx] traZODone HCL [Desyrel] 200 mg PO HS 30 Days tab 04/01/21 [Rx] Follow up Appointment(s)/Referral(s): Vic Porras DO [Primary Care Provider] - 1-2 days Patient Instructions/Handouts: How to Stop Smoking (DC), Bipolar Disorder (DC), Brief Psychotic Disorder (DC), Methamphetamine Abuse (DC) Activity/Diet/Wound Care/Special Instructions: Activity and diet as tolerated. Avoid the use of street drugs and alcohol. Take all medications as prescribed. When you are in need of refills on your medications please contact your medical provider and/or outpatient psychiatrist to have this done. Please go to scheduled outpatient appointment for aftercare treatment. If symptoms return or become worse, call the crisis line at and/or go to the nearest emergency room for evaluation. Discharge Disposition: HOME SELF-CARE
[2021-04-01] MEDS: BACITRACIN OINT 1 EACH PACKET TOPICAL SCH (09:05)
[2021-04-01] MEDS: BENZTROPINE MESYLATE 1 MG TAB PO SCH (09:05)
[2021-04-01] MEDS: NICOTINE 14MG/24HR PATCH TRANSDERM SCH (09:05)
[2021-04-01] MEDS: LORATADINE 10 MG TAB PO SCH (09:06)
[2021-04-01] MEDS: FLUTICASONE 50MCG/SPRAY NASAL 16GM EA NOSTRIL SCH (09:07)
[2021-04-01] MEDS: ACETAMINOPHEN TAB 325 MG TAB PO PRN (09:16)
[2021-04-01] MEDS: ALBUTEROL HFA INHALER INHALATION PRN (09:16)
[2021-04-01] MEDS: ARTIFICIAL TEARS-HYPROMELLOSE DROPS 15 ML BTL LEFT EYE PRN (09:18)
[2021-04-01 09:34] VITALS: BP 110/54; PULSE 87; RESP 16
[2021-04-01] MEDS: MAG HYDROX/AL HYDROX/SIMETH 30 ML CUP PO PRN (12:36)
== END 2021-04-01 13:05 | disposition home or self-care (01) | DRG 897 ==
LOC: EC 18:21 → 3MHU 03-25 03:57
PROVIDERS: ADMIT Psychiatry & Neurology Psychiatry; ATTEND Psychiatry & Neurology Psychiatry
DX: F13.239 Sedative, hypnotic or anxiolytic dependence with withdrawal, unspecified (principal); F15.10 Other stimulant abuse, uncomplicated; F17.200 Nicotine dependence, unspecified, uncomplicated; F20.9 Schizophrenia, unspecified; F31.9 Bipolar disorder, unspecified; F41.0 Panic disorder [episodic paroxysmal anxiety]; G47.00 Insomnia, unspecified; Z86.16 Personal history of COVID-19; Z20.822 Contact with and (suspected) exposure to COVID-19; Z79.899 Other long term (current) drug therapy
CPT/HCPCS: 80053; 80061; 80306; 81001; 82075; 82248; 83036; 84443; 85025; 87635; 94640; 96372; 99285

== ENCOUNTER 2024-04-24 03:54 | Inpatient (IN) | payer MEDICAID, OTHER ==
[2024-04-24 04:21] LABS: Basophils % (A) 0 %; Eosinophils # (A) 0.2 k/uL (0-0.7); Eosinophils % (A) 2 %; HCT 40.8 % (34.0-46.0); HGB 13.2 gm/dL (11.4-16.0); Lymphocytes # (A) 2.2 k/uL (1.0-4.8); Lymphocytes % (A) 23 %; MCH 30.4 pg (25.0-35.0); MCHC 32.2 g/dL (31.0-37.0); MCV 94.4 fL (80.0-100.0); Mean Platelet Volume 8.6; Monocytes # (A) 0.6 k/uL (0-1.0); Monocytes % (A) 7 %; Neutrophils # (A) 6.4 k/uL (1.3-7.7); Neutrophils % (A) 67 %; Platelet Count 320 k/uL (150-450); RBC 4.33 m/uL (3.80-5.40); RDW 13.7 % (11.5-15.5); WBC 9.6 k/uL (3.8-10.6)
[2024-04-24] MEDS: SODIUM CHLORIDE 0.9% 1,000 ML IV STA (04:25)
[2024-04-24] MEDS: HALOPERIDOL LACTATE 5 MG/ML 1 ML VIAL IVP STA (04:33)
[2024-04-24] MEDS: LORazepam 2 MG/ML INJ IV STA (04:34)
--- NOTE | 2024-04-24 04:36 | ED ---
General Adult HPI - General Chief complaint: Psychiatric Symptoms Stated complaint: mental health Time Seen by Provider: 04/24/24 04:00 Source: patient, police, EMS, RN notes reviewed, old records reviewed Mode of arrival: EMS Limitations: no limitations - History of Present Illness Initial comments: Patient is a 43-year-old female presents emergency department petition by police for manic behavior. Patient states she was using drugs today, stating that she was using "honey" which she believes is a form of marijuana. Denies any alcohol use or other forms of drugs. Has very much tangential thoughts with pressured speech. Denies suicidal or homicidal ideations, attempts, plans . Apparently patient has been destroying the apartment per petition. Patient denies hallucinations. Presents for further evaluation at this time. Does have a psychiatric history based on her records. - Related Data Home Medications Medication Instructions Recorded Confirmed Albuterol Nebulized [Ventolin 2.5 mg INHALATION RT-TID PRN 03/24/21 03/24/21 Nebulized] Atorvastatin [Lipitor] 40 mg PO HS 03/24/21 03/24/21 Benzoyl Peroxide [Benzoyl Peroxide 1 applic TOPICAL DAILY 03/24/21 03/24/21 Cleanser] Chantix 0.5mg Tablet 0.5 mg PO BID 03/24/21 03/24/21 Fluticasone Nasal [place] [Flonase 1 spray EA NOSTRIL DAILY 03/24/21 03/24/21 Nasal [place]] Loratadine [Claritin] 10 mg PO DAILY 03/24/21 03/24/21 Omeprazole 20 mg PO DAILY 03/24/21 03/24/21 Previous Rx's Medication Instructions Recorded Acetaminophen Tab [Tylenol] 650 mg PO Q4HR PRN tab 04/01/21 Artificial Tears-Hypromellose 2 drops LEFT EYE TID PRN #1 bottle 04/01/21 [Artificial Tear Drops] Benztropine Mesylate [Cogentin] 1 mg PO DAILY 30 Days tab 04/01/21 Nicotine 14Mg/24Hr Patch [Habitrol] 1 patch TRANSDERM DAILY 30 Days 04/01/21 patch fluPHENAZine [Prolixin] 3 mg PO BID 30 Days tab 04/01/21 traZODone HCL [Desyrel] 200 mg PO HS 30 Days tab 04/01/21 Allergies Allergy/AdvReac Type Severity Reaction Status Date / Time prednisone Allergy Unknown Verified 04/24/24 05:05 Review of Systems ROS Statement: Those systems with pertinent positive or pertinent negative responses have been documented in the HPI. Review of Systems: CONST: Denies fever EYES: Denies blurry vision ENT: Denies nasal congestion C/V: Denies Chest pain RESP: Denies shortness of breath GI: Denies abdominal pain : Denies dysuria SKIN: Denies rash. MSK: Denies joint pain. NEURO: Denies headache ROS Other: All systems not noted in ROS Statement are negative. Past Medical History Past Medical History: Unable to Obtain History of Any Multi-Drug Resistant Organisms: None Reported Past Surgical History: Unable to Obtain Past Psychological History: Bipolar, Schizophrenia Smoking Status: Former smoker Past Alcohol Use History: Unable to Obtain Past Drug Use History: Marijuana General Exam - General Exam Comments Initial Comments: General: Patient has pressured speech, is erratic. HEAD: Normal with no signs of head trauma. EYES: PERRLA, EOMI, conjunctiva normal, no discharge. Pulls are 3 mm and equal bilaterally. ENT: Hearing grossly intact, normal oropharynx. RESPIRATORY: Clear breath sounds bilaterally. No wheezes, rales, or rhonchi. C/V: Regular rate and rhythm. S1 and S2 auscultated, peripheral pulses 2+ and intact throughout ABD: Abd is soft, nontender, nondistended EXT: No obvious deformity SKIN: No rashes or lesions observed on exposed skin. NEURO: Alert and oriented x 4. No obvious deficits. Limitations: no limitations Course Vital Signs 04/24/24 04/24/24 03:56 06:20 Temperature 97.6 F Pulse Rate 82 83 Respiratory 18 18 Rate Blood Pressure 132/80 153/87 O2 Sat by Pulse 98 99 Oximetry Medical Decision Making - Medical Decision Making Was pt. sent in by a medical professional or institution (, PA, RADIATION CONTROL TECHNICIAN, urgent care, hospital, or penitentiary...) When possible be specific @ -No Did you speak to anyone other than the patient for history (EMS, parent, family, police, friend...)? What history was obtained from this source @ -Spoke with police who left the petition. Provided history of what they were told. Did you review nursing and triage notes (agree or disagree)? Why? @ -I reviewed and agree with nursing and triage notes Were old charts reviewed (outside hosp., previous admission, EMS record, old EKG, old radiological studies, urgent care reports/EKG's, penitentiary records)? Report findings @ -Reviewed patient's petition. Also patient was admitted for psychosis back in 2020 per records. Differential Diagnosis (chest pain, altered mental status, abdominal pain women, abdominal pain men, vaginal bleeding, weakness, fever, dyspnea, syncope, headache, dizziness, GI bleed, back pain, seizure, CVA, palpatations, mental health, musculoskeletal)? @ -Differential Mental Health Depression, anxiety, bipolar, psychosis, schizophrenia, borderline personality, situational depression, adjustment disorder, behavioral disorder, brain tumor, malingering, substance abuse, encephalopathy, medication reaction, dementia, hypothyroidism, degenerative neurologic disorder, lupus.... This is not meant to be all-inclusive list EKG interpreted by me (3pts min.). @ -As above X-rays interpreted by me (1pt min.). @ -None done CT interpreted by me (1pt min.). @ -None done U/S interpreted by me (1pt. min.). @ -None done What testing was considered but not performed or refused? (CT, X-rays, U/S, labs)? Why? @ -None What meds were considered but not given or refused? Why? @ -None Did you discuss the management of the patient with other professionals (professionals i.e. , PA, RADIATION CONTROL TECHNICIAN, lab, RT, psych nurse, secondary social studies teacher, bindery helper, teacher, telecommunications officer, manager case management)? Give summary @ -EPS notified of the consult Was smoking cessation discussed for >3mins.? @ -No Was critical care preformed (if so, how long)? @ -No Were there social determinants of health that impacted care today? How? (Homelessness, low income, unemployed, alcoholism, drug addiction, transportation, low edu. Level, literacy, decrease access to med. care, [facility], rehab)? @ -No Was there de-escalation of care discussed even if they declined (Discuss DNR or withdrawal of care, Hospice)? DNR status @ -No What co-morbidities impacted this encounter? (DM, HTN, Smoking, COPD, CAD, Cancer, CVA, ARF, Chemo, Hep., AIDS, mental health diagnosis, sleep apnea, morbid obesity)? @ -None Was patient admitted / discharged? Hospital course, mention meds given and route, prescriptions, significant lab abnormalities, going to OR and other pertinent info. @ -Patient presents with what appears to be acute psychosis, tangential speech and erratic behavior. Does endorse using marijuana variance this evening. Pr esents for further evaluation at this time. Vital signs within acceptable limits. Patient was petition. Sitter ordered. BAT is 0. EKG shows no signs of acute ischemia. Screening labs unremarkable. At this time, patient is medically cleared for evaluation by psychiatry. Disposition pending psychiatric evaluation. EPS notified of the consult. Patient was administered Haldol and Ativan due to agitation and her not responding to verbal redirection. EPS evaluated the patient determined that she does meet inpatient criteria. COVID swab ordered. Clinical certificate completed by myself. Undiagnosed new problem with uncertain prognosis? @ -No Drug Therapy requiring intensive monitoring for toxicity (Heparin, Nitro, Insulin, Cardizem)? @ -No Were any procedures done? @ -No Diagnosis/symptom? @ -Acute psychosis, encounter for psychiatric evaluation Acute, or Chronic, or Acute on Chronic? @ -Acute Uncomplicated (without systemic symptoms) or Complicated (systemic symptoms)? @ -Complicated Side effects of treatment? @ -None Exacerbation, Progression, or Severe Exacerbation] @ -No Poses a threat to life or bodily function? @ -Yes - Lab Data Result diagrams: 04/24/24 04:11 04/24/24 04:11 Lab Results 04/24/24 04/24/24 Range/Units 04:11 04:11 WBC 9.6 (3.8-10.6) k/uL RBC 4.33 (3.80-5.40) m/uL Hgb 13.2 (11.4-16.0) gm/dL Hct 40.8 (34.0-46.0) % MCV 94.4 (80.0-100.0) fL MCH 30.4 (25.0-35.0) pg MCHC 32.2 (31.0-37.0) g/dL RDW 13.7 (11.5-15.5) % Plt Count 320 (150-450) k/uL MPV 8.6 Neutrophils % 67 % Lymphocytes % 23 % Monocytes % 7 % Eosinophils % 2 % Basophils % 0 % Neutrophils # 6.4 (1.3-7.7) k/uL Lymphocytes # 2.2 (1.0-4.8) k/uL Monocytes # 0.6 (0-1.0) k/uL Eosinophils # 0.2 (0-0.7) k/uL Basophils # 0.0 (0-0.2) k/uL Sodium 141 (137-145) mmol/L Potassium 3.6 (3.5-5.1) mmol/L Chloride 109 H (98-107) mmol/L Carbon Dioxide 25 (22-30) mmol/L Anion Gap 7 mmol/L BUN 20 H (7-17) mg/dL Creatinine 0.65 (0.52-1.04) mg/dL Est GFR (CKD-EPI)AfAm >90 (>60 ml/min/1.73 sqM) Est GFR (CKD-EPI)NonAf >90 (>60 ml/min/1.73 sqM) Glucose 107 H (74-99) mg/dL Calcium 9.2 (8.4-10.2) mg/dL Total Bilirubin 0.4 (0.2-1.3) mg/dL AST 80 H (14-36) U/L ALT 105 H (4-34) U/L Alkaline Phosphatase 96 (38-126) U/L Total Protein 6.6 (6.3-8.2) g/dL Albumin 4.1 (3.5-5.0) g/dL Serum Alcohol <10 mg/dL - EKG Data -: EKG Interpreted by Me EKG Comments: 12-lead Electrocardiogram Interpretation Note EKG was reviewed and interpreted by myself. 12-lead ECG performed at 0359 is interpreted by me as revealing normal sinus rhythm at a rate of 81 beats per minute. [place] is normal. NE interval is 160 ms, QRS duration is 90 ms, QTc is 424 ms.. There were no ST or T wave abnormalities to suggest myocardial i schemia or injury. R wave progression across the precordium was satisfactory. By my interpretation this EKG is non-diagnostic for acute ischemia. Disposition Clinical Impression: Acute psychosis, Encounter for psychiatric assessment Disposition: TRANSFER TO PSYCH HOSP/UNIT Condition: Stable Referrals: Vic Porras DO [Primary Care Provider] - 1-2 days Time of Disposition: 06:42
[2024-04-24 04:37] LABS: ALT 105 U/L (4-34); AST 80 U/L (14-36); African American GFR (CKD) >90 (>60 ml/min/1.73 sqM); Albumin 4.1 g/dL (3.5-5.0); Alcohol <10 mg/dL; Alkaline Phosphatase 96 U/L (38-126); Anion Gap 7 mmol/L; Blood Urea Nitrogen 20 mg/dL (7-17); Calcium 9.2 mg/dL (8.4-10.2); Carbon Dioxide 25 mmol/L (22-30); Chloride 109 mmol/L (98-107); Glucose 107 mg/dL (74-99); Non-African American GFR(CKD) >90 (>60 ml/min/1.73 sqM); Potassium 3.6 mmol/L (3.5-5.1); Sodium 141 mmol/L (137-145); Total Bilirubin 0.4 mg/dL (0.2-1.3); Total Protein 6.6 g/dL (6.3-8.2)
[2024-04-24] MEDS ORDERED: MAGNESIUM HYDROXIDE 2,400 MG/30 ML CUP PO PRN (09:17)
[2024-04-24] MEDS ORDERED: MAG HYDROX/AL HYDROX/SIMETH 355 ML BOTTLE PO PRN (09:17)
[2024-04-24 09:46] LABS: Appearance,Urine Clear (Clear); Bilirubin,Urine Negative (Negative); Blood,Urine Large (Negative); Color,Urine Yellow; Glucose,Urine (UA) Negative (Negative); Ketones,Urine Trace (Negative); Leukocyte Esterase,Urine Trace (Negative); Mucus,Urine Many /hpf; Nitrite,Urine Negative (Negative); Protein,Urine Trace (Negative); RBC,Urine 145 /hpf (0-5); Specific Gravity,Urine 1.028 (1.001-1.035); Squamous Epithelial Cell,Urine 5 /hpf (0-4); Urobilinogen,Urine <2.0 mg/dL (<2.0); WBC,Urine 5 /hpf (0-5)
[2024-04-24] MEDS: NICOTINE 14MG/24HR PATCH TRANSDERM SCH (10:08)
[2024-04-24] MEDS: LORazepam 1 MG TAB PO PRN (11:52)
[2024-04-24] MEDS: haloperidoL 5 MG TAB PO PRN (18:33)
[2024-04-24 19:21] LABS: Appearance,Urine Clear (Clear); Bilirubin,Urine Negative (Negative); Blood,Urine Large (Negative); Color,Urine Light Yellow; Glucose,Urine (UA) Negative (Negative); Ketones,Urine Negative (Negative); Leukocyte Esterase,Urine Negative (Negative); Mucus,Urine Rare /hpf; Nitrite,Urine Negative (Negative); PH, Urine 6.5 (5.0-8.0); Protein,Urine Negative (Negative); RBC,Urine 33 /hpf (0-5); Specific Gravity,Urine 1.023 (1.001-1.035); Squamous Epithelial Cell,Urine 2 /hpf (0-4); Urobilinogen,Urine <2.0 mg/dL (<2.0); WBC,Urine <1 /hpf (0-5)
[2024-04-24 19:28] LABS: Amphetamine Screen,Urine Not Detected (NotDetected); Barbiturate Screen,Urine Not Detected (NotDetected); Benzodiazepines Screen,Urine Detected (NotDetected); Cocaine Screen,Urine Not Detected (NotDetected); Methadone Screen, Urine Not Detected (NotDetected); Opiate Screen,Urine Not Detected (NotDetected); Oxycodone Screen, Urine Not Detected (NotDetected); Phencyclidine Screen,Urine Not Detected (NotDetected); Tricyclic Antidepressant,Urine Not Detected (NotDetected); Urn Cannabinoid Scrn Detected (NotDetected)
[2024-04-24] MEDS: NICOTINE GUM (POLACRILEX) 2 MG GUM BUCCAL PRN (21:14)
[2024-04-24] MEDS: traZODone HCL 50 MG TAB PO PRN (21:21)
[2024-04-24] MEDS: HALOPERIDOL LACTATE 5 MG/ML 1 ML VIAL IM PRN (21:53)
[2024-04-24] MEDS: LORazepam 2 MG/ML INJ IM PRN (21:54)
--- NOTE | 2024-04-25 00:42 | P.CONS ---
History of Present Illness - Reason for Consult Consult date: 04/25/24 - History of Present Illness The patient is a 43-year-old female with a PMH of asthma who was brought into the emergency room under police custody for manic behavior. The patient was admitted to the mental health unit where she was seen and evaluated accompanied by mental health unit RN. Patient notes that she was acting paranoid as she had recently tried a new kind of marijuana. She reports smoking 5 cigarettes a day as well as vaping and social alcohol use. She denies any physical complaints at the time of interview. Denied experiencing chest discomfort, shortness of breath, fever, chills, cough, nausea, vomiting, abdominal pain, diarrhea. Review of systems: Pertinent positives and negatives as discussed in HPI, a complete review of systems was performed and all other systems are negative. Physical examination: General: non toxic, no distress, appears at stated age, normal weight Derm: no unusual rashes/lesions, no unusual ecchymoses, warm, dry Head: atraumatic, normocephalic, symmetric Eyes: EOMI, no lid lag, anicteric sclera ENT: Nose and ears atraumatic, no thrush, no pharyngeal erythema Neck: trachea midline, supple Mouth: no lip lesion, mucus membranes moist Cardiovascular: S1S2 reg, no murmur, no edema Lungs: CTA bilateral, no rhonchi, no rales , no accessory muscle use Abdominal: soft, nontender to palpation, no guarding Ext: no gross muscle atrophy, no contractures, Neuro: No gross focal neuro deficits noted Psych: Alert, oriented, appropriate affect Assessment: Marijuana abuse Transaminitis, mild Tobacco abuse Chronic conditions: Asthma Psychosis Imaging: EKG revealed sinus rhythm at [address]/T wave changes noted as reviewed by me. Data Review: Laboratory evaluation revealed urine toxicology positive for marijuana and benzodiazepines with UA unremarkable, AST 80, ALT 105, glucose 107, sodium 141, WBC count 9.6 Plan: Advised on the importance of cessation from substance use Defer management of psychosis to primary psychiatry service Monitor LFTs for resolution of transaminitis Resume home inhalers Thank you for allowing us to participate in the care of this patient. We will follow peripherally. Do not hesitate to contact us with questions. Someone can be reached from the [facility] hospitalist group at all hours of the day at [phone]. Past Medical History Past Medical History: Unable to Obtain History of Any Multi-Drug Resistant Organisms: None Reported Past Surgical History: Unable to Obtain Smoking Status: Current every day smoker, Vaper - Past Family History Mother Family Medical History: COPD Medications and Allergies Home Medications Medication Instructions Recorded Confirmed Type Fluticasone Nasal [place] [Flonase 1 spray EA NOSTRIL DAILY 03/24/21 04/24/24 History Nasal [place]] Loratadine [Claritin] 10 mg PO DAILY 03/24/21 04/24/24 History ALPRAZolam [Xanax] 0.5 mg PO TID PRN 04/24/24 04/24/24 History Albuterol Sulfate [Ventolin HFA] 2 puff INHALATION RT-Q4H PRN 04/24/24 04/24/24 History FLUoxetine HCL [PROzac] 20 mg PO DAILY 04/24/24 04/24/24 History Allergies Allergy/AdvReac Type Severity Reaction Status Date / Time prednisone Allergy Unknown Verified 04/24/24 12:21 Physical Exam Vitals: Vital Signs Temp Pulse Pulse Resp BP BP Pulse Ox 04/24/24 10:16 97.9 F 89 16 169/82 98 04/24/24 06:20 83 18 153/87 99 04/24/24 03:56 97.6 F 82 18 132/80 98 Intake and Output 04/24/24 04/24/24 04/25/24 14:59 22:59 06:59 Other: Weight 86.5 kg Results CBC & Chem 7: 04/24/24 04:11 04/24/24 04:11 Labs: Abnormal Lab Results - Last 24 Hours (Table) 04/24/24 04/24/24 04/24/24 Range/Units 04:11 09:25 18:59 Chloride 109 H (98-107) mmol/L BUN 20 H (7-17) mg/dL Glucose 107 H (74-99) mg/dL AST 80 H (14-36) U/L ALT 105 H (4-34) U/L Urine Protein Trace H (Negative) Urine Ketones Trace H (Negative) Urine Blood Large H Large H (Negative) Ur Leukocyte Esterase Trace H (Negative) Urine RBC 145 H 33 H (0-5) /hpf Ur Squamous Epith Cells 5 H (0-4) /hpf Urine Mucus Many H Rare H (None) /hpf U Benzodiazepines Scrn Detected H (NotDetected) U Marijuana (THC) Screen Detected H (NotDetected)
[2024-04-25] MEDS: IBUPROFEN 600 MG TAB PO PRN (04:11)
[2024-04-25] MEDS: LITHIUM CARBONATE 150 MG CAP PO SCH (10:04)
[2024-04-25 13:03] LABS: ALT 104 U/L (4-34); AST 98 U/L (14-36); African American GFR (CKD) >90 (>60 ml/min/1.73 sqM); Albumin 4.1 g/dL (3.5-5.0); Alkaline Phosphatase 105 U/L (38-126); Anion Gap 7 mmol/L; Blood Urea Nitrogen 12 mg/dL (7-17); Calcium 9.7 mg/dL (8.4-10.2); Carbon Dioxide 25 mmol/L (22-30); Chloride 106 mmol/L (98-107); Glucose 99 mg/dL (74-99); Non-African American GFR(CKD) >90 (>60 ml/min/1.73 sqM); Potassium 4.2 mmol/L (3.5-5.1); Sodium 138 mmol/L (137-145); Total Bilirubin 0.4 mg/dL (0.2-1.3); Total Protein 6.7 g/dL (6.3-8.2)
--- NOTE | 2024-04-25 13:37 | P.HP ---
Psychiatric H&P - . H&P Date: 04/25/24 History & Physical: Allergies Allergy/AdvReac Type Severity Reaction Status Date / Time prednisone Allergy Unknown Verified 04/24/24 12:21 Vital Signs Temp 97.0 F L 04/25/24 09:51 Pulse 69 04/25/24 09:51 Resp 20 04/25/24 09:51 BP 117/70 04/25/24 09:51 Pulse Ox 98 04/24/24 10:16 FiO2 Intake & Output 04/24/24 04/25/24 04/25/24 18:59 06:59 18:59 Weight 86.5 kg Laboratory Last Values WBC 9.6 k/uL (3.8-10.6) 04/24/24 04:11 RBC 4.33 m/uL (3.80-5.40) 04/24/24 04:11 Hgb 13.2 gm/dL (11.4-16.0) 04/24/24 04:11 Hct 40.8 % (34.0-46.0) 04/24/24 04:11 MCV 94.4 fL (80.0-100.0) 04/24/24 04:11 MCH 30.4 pg (25.0-35.0) 04/24/24 04:11 MCHC 32.2 g/dL (31.0-37.0) 04/24/24 04:11 RDW 13.7 % (11.5-15.5) 04/24/24 04:11 Plt Count 320 k/uL (150-450) 04/24/24 04:11 MPV 8.6 04/24/24 04:11 Neutrophils % 67 % 04/24/24 04:11 Lymphocytes % 23 % 04/24/24 04:11 Monocytes % 7 % 04/24/24 04:11 Eosinophils % 2 % 04/24/24 04:11 Basophils % 0 % 04/24/24 04:11 Neutrophils # 6.4 k/uL (1.3-7.7) 04/24/24 04:11 Lymphocytes # 2.2 k/uL (1.0-4.8) 04/24/24 04:11 Monocytes # 0.6 k/uL (0-1.0) 04/24/24 04:11 Eosinophils # 0.2 k/uL (0-0.7) 04/24/24 04:11 Basophils # 0.0 k/uL (0-0.2) 04/24/24 04:11 Sodium 138 mmol/L (137-145) 04/25/24 11:44 Potassium 4.2 mmol/L (3.5-5.1) 04/25/24 11:44 Chloride 106 mmol/L (98-107) 04/25/24 11:44 Carbon Dioxide 25 mmol/L (22-30) 04/25/24 11:44 Anion Gap 7 mmol/L 04/25/24 11:44 BUN 12 mg/dL (7-17) 04/25/24 11:44 Creatinine 0.58 mg/dL (0.52-1.04) 04/25/24 11:44 Est GFR (CKD-EPI)AfAm >90 (>60 ml/min/1.73 sqM) 04/25/24 11:44 Est GFR (CKD-EPI)NonAf >90 (>60 ml/min/1.73 sqM) 04/25/24 11:44 Glucose 99 mg/dL (74-99) 04/25/24 11:44 Calcium 9.7 mg/dL (8.4-10.2) 04/25/24 11:44 Total Bilirubin 0.4 mg/dL (0.2-1.3) 04/25/24 11:44 AST 98 U/L (14-36) H 04/25/24 11:44 ALT 104 U/L (4-34) H 04/25/24 11:44 Alkaline Phosphatase 105 U/L (38-126) 04/25/24 11:44 Total Protein 6.7 g/dL (6.3-8.2) 04/25/24 11:44 Albumin 4.1 g/dL (3.5-5.0) 04/25/24 11:44 Urine Color Light Yellow 04/24/24 18:59 Urine Appearance Clear (Clear) 04/24/24 18:59 Urine pH 6.5 (5.0-8.0) 04/24/24 18:59 Ur Specific [place] 1.023 (1.001-1.035) 04/24/24 18:59 Urine Protein Negative (Negative) 04/24/24 18:59 Urine Glucose (UA) Negative (Negative) 04/24/24 18:59 Urine Ketones Negative (Negative) 04/24/24 18:59 Urine Blood Large (Negative) H 04/24/24 18:59 Urine Nitrite Negative (Negative) 04/24/24 18:59 Urine Bilirubin Negative (Negative) 04/24/24 18:59 Urine Urobilinogen <2.0 mg/dL (<2.0) 04/24/24 18:59 Ur Leukocyte Esterase Negative (Negative) 04/24/24 18:59 Urine RBC 33 /hpf (0-5) H 04/24/24 18:59 Urine WBC <1 /hpf (0-5) 04/24/24 18:59 Ur Squamous Epith Cells 2 /hpf (0-4) 04/24/24 18:59 Urine Mucus Rare /hpf (None) H 04/24/24 18:59 Urine HCG, Qual Not Detected (Not Detectd) 04/24/24 09:25 Urine Opiates Screen Not Detected (NotDetected) 04/24/24 18:59 Ur Oxycodone Screen Not Detected (NotDetected) 04/24/24 18:59 Urine Methadone Screen Not Detected (NotDetected) 04/24/24 18:59 Ur Barbiturates Screen Not Detected (NotDetected) 04/24/24 18:59 U Tricyclic Antidepress Not Detected (NotDetected) 04/24/24 18:59 Ur Phencyclidine Scrn Not Detected (NotDetected) 04/24/24 18:59 Ur Amphetamines Screen Not Detected (NotDetected) 04/24/24 18:59 U Methamphetamines Scrn Not Detected (NotDetected) 04/24/24 18:59 U Benzodiazepines Scrn Detected (NotDetected) H 04/24/24 18:59 Urine Cocaine Screen Not Detected (NotDetected) 04/24/24 18:59 U Marijuana (THC) Screen Detected (NotDetected) H 04/24/24 18:59 Serum Alcohol <10 mg/dL 04/24/24 04:11 Influenza Type A (PCR) Not Detected (Not Detectd) 04/24/24 06:35 Influenza Type B (PCR) Not Detected (Not Detectd) 04/24/24 06:35 RSV (PCR) Not Detected (Not Detectd) 04/24/24 06:35 SARS-CoV-2 (PCR) Not Detected (Not Detectd) 04/24/24 06:35 04/25/24 13:37 Psychiatric Evaluation Identifying Data: Ms. Marcelo is 43 years old,, , white female, who lives in [place], [place] in a manufactured home. Chief Complaint: No issues, boyfriend called he police History of Psychiatric Illness- The patient noted that the police brought her to the ER with a petition. The patient noted that she was arranging things at home, which her boyfriend thought was not right. The patient was unable to give meaningful history because of severe flight of ideas and loose association. She was losing train of thought frequently and jumping from subjects to subjects. The patient was restless, fidgety and getting up frequently to get coffee. As per patient she stopped taking her medications 3 months ago. The patient noted that she is Bipolar and goes in circles, she stated, I like direct questions. The patient was taking Prozac and Xanax, as per patient. Past Psychiatric History: The patient noted that she started seeking mental health since age 14. She noted that she was admitted to this hospital in 2020. Past Medication History: Prozac, Zoloft, Effexor, Paxil, Wellbutrin, Prolixin, Cogentin, Zyprexa, Leading questions: The patient denied depression and anxiety. The patient noted that her mind is racing and has millions of thoughts in her mind. She was Adderall and Coffee. IDenied SI or HI. Denied symptoms consistent with psychosis. Drugs and alcohol history: The patient admitted to using Marijuana and Alcohol. She did methamphetamine, Xanax in the past. She denied use abuse of opioids Tobacco use: The patient smokes 1 pack a day and also Vapes. Past Medical history: Could not be obtained. Family History of Psychiatric Disorder: Her mother has h/o Bipolar disorder, Sister has anxiety, brother has bipolar disorder. Social History and Family History: The patient was born in [place] and raised all over. The patient dropped out of school at age 14. She completed GED. 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 No other history could be obtained. OTC: Motrin, Benadryl Allergies: None as per patient. Objective: MSE: Alert and attentive. Orientation times three Dressed and Groomed: Appropriately. Pleasant and cooperative. Psychomotor Activity: Increased. Speech: Normal in tone, quality, over productive, push of speech. Mood: I am normal Affect: Elated, expansive SI or HI: None. Perceptual disturbance: None. Thought Content: Grandiosity. No paranoia or other delusional thinking noted. Thought Process: Flight of ideas, loose association, disorganized. Cognition: Intact Judgment and Insight: Poor AIMS: Normal Labs: Available labs reviewed. Diagnosis: Bipolar Disorder, Manic phase Plan and Recommendations: Continue current Medications. Add Prolixin 5 mg po hs, Li 150 mg po bid, Trazodone 100 mg po qhs, Cogentin 0.5 mg po hs. Monitor MS and side effects of medications and adjust medications accordingly. Provide supportive psychotherapy and psychoeducation. The patient provided psychoeducation. Te patient provided with substance abuse counselling and advised to attend AA/NA Smoke cessation therapy. The patient to attend [facility]. CBC with Diff, CMP, TSH, Lipid Profile, HbA1c, EKG, Test ordered. Medication Consent with explanation of risk/benefits and side effects: Explained and obtained.
[2024-04-25 19:15] LABS: LDL Cholesterol,Calculated 160.6 mg/dL (0.0-131.0)
[2024-04-25] MEDS: BENZTROPINE MESYLATE 0.5 MG TAB PO SCH (22:03)
[2024-04-25] MEDS: traZODone HCL 100 MG TAB PO SCH (22:03)
--- NOTE | 2024-04-26 15:39 | P.PN ---
Progress Note - Text Progress Note Date: 04/26/24 Follow-up Mediation Review Chief Complaint: I am good, can I go home Subjective: The patient noted that she is improved now she can go home. She stated that she has lot of important things to be taken care of. The patient was not able to describe any task. The she said it of if she does not go home. The patient continues show manic behavior. She is intrusive, easily distracted, has flight of ideas and unable to keep goal directed conversation. She did mention having millions of thoughts running in her mind. The patient has been attending the groups. The participation is limited due to distractibility, flight of ideas and inability to hold goal-oriented conversation. The interaction with staff and peers is fair. The patient is compliant with treatment recommendations. Leading questions: The patient denied Depression and Anxiety. Denied SI or HI. Denied symptoms consistent with psychosis Sleep and Appetite: Sleep is impaired. Appetite is good. Change in family/ living/job/financial/daily routine: No change. Change in medical condition: No change. Change in medications: No change. Side effects from Medications: None noticed. Allergies: No change. Objective- MSE: Alert and attentive. Orientation times three. Dressed and Groomed: Appropriately. Pleasant and cooperative. Psychomotor Activity: Normal. Speech: Normal in tone, quality, and quantity. Mood: Good. Affect: Expansive. SI or HI: None. Perceptual disturbance: None. Thought Content: Grandiose ideations. No paranoia or other delusional thinking noted. Thought Process: Flight of ideas, loose association, disorganized but intensity has one down. Cognition: Intact Judgment and Insight: Poor AIMS: Normal. Labs: No new labs. Diagnosis: No change. Plan and Recommendations: Continue current Medications. Increase Prolixin to 7.5 mg and Li 150 mg three times a day. Monitor MS and side effects of medications and adjust medications accordingly. Provide supportive psychotherapy. The patient provided psychoeducation and advised The patient provided Substance abuse counseling. Smoke cessation therapy. The patient to attend mensah activities. Medication Consent with explanation of risk/benefits and side effects: Explained and obtained.
[2024-04-26] MEDS: LITHIUM CARBONATE 150 MG CAP PO SCH (16:41)
[2024-04-27 06:35] VITALS: RESP 16
--- NOTE | 2024-04-27 14:07 | P.PN ---
Progress Note - Text Progress Note Date: 04/27/24 Interval History: Patient was seen wandering the hallways and was directable and agreeable to speak with typewriter repairer in the office. She is elevated, has a flight of ideas, and is impulsive. She signed ITT but then rescinded it. Patient is labile and fluctuates from being nearly tearful to laughing loudly. She is currently convinced that she would like to be compliant with her psychotropic medications. She denies concerns with the current medication regimen. She states just been feeling better on that and reports fair sleep and appetite. She says that her mood is "great ". She stands before the interview concludes and displays some psychomotor excitement although not psychomotor agitation. At this time patient denies any suicidal or homicidal ideations, intent or plan. Patient denies any auditory, visual hallucinations and denies any paranoia or delusions. Patient denies any side effects from the medications and has been compliant with meds. Mental Status Exam: Alert and attentive. Orientation times three. Dressed and Groomed: Appropriately. Pleasant and cooperative. Psychomotor Activity: Normal. Speech: Normal in tone, quality. Hyperverbal although not pressured Mood: "great" Affect: Expansive, labile SI or HI: None. Perceptual disturbance: None. Thought Content: No paranoia or other delusional thinking noted. Thought Process: Flight of ideas, loose association, disorganized Cognition: Intact Judgment and Insight: Poor, improving AIMS: 0 Assessment Bipolar I disorder, currently manic Plan: -Patient continues to meet criteria for inpatient psychiatric admission for symptom stabilization and safety. -Medications: Prolixin 7.5 mg qHS, Cogentin 0.5 mg qHS, trazodone 100 mg qHS, increase [place] to 300 mg BID for mood stabilization -Repeat LFTs for tomorrow -When necessary Ativan and Haldol for agitation/aggression. -NRT - [nicotine patch] -SW on board for discharge planning. Encouraged the patient to participate in milieu.
[2024-04-27] MEDS: ALBUTEROL INHALER 60 PUFF/8 GM INHALER (MHU) INHALATION PRN (17:27)
[2024-04-27] MEDS: LITHIUM CARBONATE 150 MG CAP PO SCH (20:01)
[2024-04-27] MEDS: ACETAMINOPHEN TAB 325 MG TAB PO PRN (22:02)
[2024-04-28 07:21] LABS: Bilirubin, Delta 0.3 mg/dL (0.0-0.2); Bilirubin,Unconjugated 0.1 mg/dL (0.0-1.1); Total Bilirubin 0.4 mg/dL (0.2-1.3); Total Protein 6.6 g/dL (6.3-8.2)
--- NOTE | 2024-04-28 11:44 | P.PN ---
Progress Note - Text Progress Note Date: 04/28/24 Interval History: Patient was seen wandering the hallways and was directable and agreeable to speak with editorial writer in the office. She is elevated, has a flight of ideas, and has hyperverbal speech. 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 Patient reports difficulty sleeping last night and reports early awakening. She states that her mood is currently "ecstatic ". She is at times able to recognize that she is currently manic but then later feels that she is just energetic and not manic at this time. She is hoping to be discharged soon and would like to go home and clean her home. She is concerned that her house is going to be condemned but is having friends and family help her clean. However, patient continues to be manic and is not currently stable to be considered for discharge. At this time patient denies any suicidal or homicidal ideations, intent or plan. Patient denies any auditory, visual hallucinations and denies any paranoia or delusions. Patient denies any side effects from the medications and has been compliant with meds. Vital Signs Temp 97.8 F 04/27/24 05:35 Pulse 91 04/28/24 07:08 Resp 16 04/27/24 05:35 BP 106/70 04/28/24 07:08 Pulse Ox 99 04/27/24 05:35 FiO2 Mental Status Exam: Alert and attentive. Orientation times three. Dressed and Groomed: Appropriately. Pleasant and cooperative. Psychomotor Activity: Normal. No tremor Speech: Normal in tone, quality. Hyperverbal although not pressured Mood: "Ecstatic" Affect: Expansive, labile SI or HI: None. Perceptual disturbance: None. Thought Content: No paranoia. Grandiosity Thought Process: Flight of ideas, loose association, disorganized Cognition: Intact Judgment and Insight: Poor, improving AIMS: 0 Assessment Bipolar I disorder, currently manic Plan: -Patient continues to meet criteria for inpatient psychiatric admission for symptom stabilization and safety. -Medications: Prolixin 7.5 mg qHS, Cogentin 0.5 mg qHS, trazodone 100 mg qHS, increase [place] to 450 mg BID for mood stabilization -LFTs noted to be downtrending- will continue Prolixin -Li level ordered for tomorrow AM -When necessary Ativan and Haldol for agitation/aggression. -NRT - nicotine patch -SW on board for discharge planning. Encouraged the patient to participate in milieu.
[2024-04-28] MEDS: LITHIUM CARBONATE 150 MG CAP PO SCH (20:59)
--- NOTE | 2024-04-29 15:54 | P.PN ---
Progress Note - Text Progress Note Date: 04/29/24 Follow-up Mediation Review Chief Complaint: I am good better Subjective: The patient noted that she is feeling much better. She stated that she was manic and delusional. She feels that she is making progress. The patient able to hold a goal directed conversation for a short time and started stated having difficulty to stay on a topic. She also became demanding and irritable. She was provoked easily. She was restless and distractable. After some time she got up and left the office abruptly stating that she done. She reported no side effects. Prolixin increased to 10 mg at bedtime. The patient has been attending the groups. The participation is limited. The interaction with staff and peers is fair. The patient is compliant with treatment recommendations. Leading questions: The patient denied Depression and Anxiety. Denied SI or HI. Denied symptoms consistent with psychosis Sleep and Appetite: Sleep is adequate. Appetite is good. Change in family/ living/job/financial/daily routine: No change. Change in medical condition: No change. Change in medications: No change. Side effects from Medications: None noticed. Allergies: No change. Objective- MSE: Alert and attentive. Orientation times three. Dressed and Groomed: Appropriately. Pleasant and cooperative. Psychomotor Activity: Slightly increased. Speech: Normal in tone, quality, and quantity. Mood: I am fine Affect: Expansive. SI or HI: None. Perceptual disturbance: None. Thought Content: Grandiose ideations. No paranoia or other delusional thinking noted. Thought Process: Flight of ideas.. Cognition: Intact Judgment and Insight: Poor AIMS: Normal. Labs: No new labs. Diagnosis: No change. Plan and Recommendations: Continue current Medications. Increase Prolixin to 10mg hs. Monitor MS and side effects of medications and adjust medications accordingly.
[2024-04-30] MEDS: BENZOCAINE 20 % GEL 11.9 GM TUBE MM PRN (01:06)
[2024-04-30] MEDS: LITHIUM CARBONATE 150 MG CAP PO SCH (12:09)
[2024-04-30] MEDS ORDERED: KETOROLAC 30 MG/ML 1 ML VIAL IM STA (13:51)
[2024-04-30] MEDS: KETOROLAC 15 MG/ML 1 ML VIAL IM STA (14:27)
--- NOTE | 2024-04-30 14:37 | P.PN ---
Subjective Progress Note Date: 04/30/24 Hospital course: Patient is a 43-year-old female with a past medical history of asthma and hyperlipidemia. She presented currently admitted to mental health unit. Received notification that patient was requesting to see medical provider secondary to reports of right upper dental pain and concerns of a UTI. Patient was seen and fully evaluated in mental health unit. She is ambulatory with a steady gait. Reports pain and sensitivity to right upper jaw/teeth and mouth. Patient reports all of her teeth hurt on her right upper side and states her mouth is very sensitive. Upon physical examination, patient was noted to have filling to right upper molar, but no signs of decay, swelling, abscess or drainage noted upon physical assessment. 2 small canker sores were noted to r ight lateral hard palate. In addition patient reports urinary frequency and urgency and concerns that she has developed a UTI. She denies hematuria or dysuria. Patient denies any fevers, chills, diaphoresis, CVA tenderness, abdominal pain, suprapubic pain/pressure, or any other complaints at this time. Physical exam: Vital signs reviewed and stable. General: Nontoxic, no distress and appears stated age. Derm: Skin warm and dry, normal coloration for ethnicity. Head: Atraumatic, normocephalic and symmetric. Eyes: EOMs intact, no lid lag, and anicteric sclera Mouth: no lip lesions, mucus membranes moist, Patient reports dental/oral pain. Patient does have filling to right upper molar, but no signs of decay, swelling, abscess or drainage noted upon physical assessment. 2 small canker sores were noted to right lateral hard palate. Cardiovascular: regular rate and rhythm with normal S1S2, no murmur, positive posterior tibial pulses bilaterally, and cap refill < 2 seconds. Lungs: Respirations even, regular, and unlabored on room air. Lungs CTA bilaterally, no rhonchi, no rales, no wheezing, and no accessory muscle usage. Abdominal: soft, nontender to palpation, no guarding, no appreciable organomegaly Ext: ROM intact. No gross muscle atrophy, no edema, no contractures Neuro: Speech clear, face symmetrical and CN II-XII grossly intact with no noted focal neuro deficits Psych: Alert and oriented to person, place, time, and situation. Appropriate and pleasant affect. Assessment and Plan of Care: Oral pain/dental pain -Patient reports dental/oral pain. Patient does have filling to right upper molar, but no signs of decay, swelling, abscess or drainage noted upon physical assessment. 2 small canker sores were noted to right lateral hard palate. -Order placed for Toradol 30 mg IM X1 dose and patient may continue with Orajel 4 times daily as needed and/or Tylenol 650 mg every 4 hours as needed for mild pain or Motrin 600 mg every 6 hours as needed for moderate pain. Urinary frequency and urgency -Patient reports feeling as though she has a UTI, reviewed recent urinalysis completed 04/24/2024 which was positive for blood and 33 RBCs but negative for infection. We will repeat urinalysis secondary to patient's symptoms at this time. -Additional orders be needed pending urinalysis results. Hyperlipidemia Lipid profile showing triglycerides of 244.00, cholesterol 253.00, LDL of 160.6 and VLDL of 48.80. Patient started on atorvastatin 40 mg nightly. Manic behavior, bipolar disorder Management per primary admitting psychiatry team. Data reviewed: Vital signs reviewed. Blood pressure 125/74, heart rate 71, respiratory rate 16, temp 97.7 F, and SpO2 of 98% on room air. Lipid profile showing triglycerides of 244.00, cholesterol 253.00, LDL of 160.6 and VLDL of 48.80. Reviewed urinalysis completed on 04/24/2024 showing positive for blood and 33 RBCs but negative for infection. Urine hCG was negative. Order placed for repeat urinalysis secondary to patient's urinary complaints. Thank you for allowing us to participate in the care of this pleasant patient. Do not hesitate to contact us with questions. Someone can be reached from the [facility] hospitalist group all hours of the day at [phone] or via perfect serve. Patient was seen independently by Nurse Pracitioner. This document was prepared using [employer] dictation software. Please allow for errors in photovoltaic solar cell designer, while rare they do occur. I reviewed the documentation as provided by the JONE above, who is the original author of this note. I agree with the documented assessment and plan, with the following changes: none Objective - Vital Signs Vital signs: Vital Signs Temp 97.7 F 04/30/24 06:23 Pulse 71 04/30/24 06:23 Resp 16 04/30/24 06:23 BP 125/74 06/25/24 06:23 Pulse Ox 98 04/30/24 06:23 FiO2 - Labs CBC & Chem 7: 04/24/24 04:11 04/25/24 11:44
--- NOTE | 2024-04-30 15:34 | P.PN ---
Progress Note - Text Progress Note Date: 04/30/24 Follow-up Mediation Review Chief Complaint: I am good better Subjective: The patient noted that she is feeling much better. She wanted to know her Li level. The patient exhibiting symptoms of missy. She has flight ideas, push of speech, intrusive behavior, distractibility, sudden anger, impulsivity, and irritability. She gets frustrated easily. She has mild grandiose ideas no formed delusions. The patients Li level is 0.3. Her dose was increased and nursing staff asked to check for swallowing her pills. The patient was able to hold a goal directed conversation for a short time but stats having difficulty to stay on a topic for longer duration The patient has been attending the groups. The participation is limited. The interaction with staff and peers is fair. The patient is compliant with treatment recommendations. Leading questions: The patient denied Depression and Anxiety. Denied SI or HI. Denied symptoms consistent with psychosis Sleep and Appetite: Sleep is adequate. Appetite is good. Change in family/ living/job/financial/daily routine: No change. Change in medical condition: No change. Change in medications: No change. Side effects from Medications: None noticed. Allergies: No change. Objective- MSE: Alert and attentive. Orientation times three. Dressed and Groomed: Appropriately. Pleasant and cooperative. Psychomotor Activity: Slightly increased. Speech: Normal in tone, quality, and quantity. Mood: I am fine Affect: Expansive. SI or HI: None. Perceptual disturbance: None. Thought Content: Grandiose ideations. No paranoia or other delusional thinking noted. Thought Process: Flight of ideas, push of speech, mild loose associations Cognition: Intact Judgment and Insight: Poor AIMS: Normal. Labs: No new labs. Diagnosis: No change. Plan and Recommendations: Continue current Medications. Increase Li to 300 mg bid and 600 mg qhs. Monitor MS and side effects of medications and adjust medications accordingly.
[2024-04-30 16:48] LABS: Amorphous Sediment,Urine Few /hpf; Appearance,Urine Cloudy (Clear); Bacteria,Urine Rare /hpf; Bilirubin,Urine Negative (Negative); Blood,Urine Negative (Negative); Color,Urine Light Yellow; Glucose,Urine (UA) Negative (Negative); Ketones,Urine Negative (Negative); Leukocyte Esterase,Urine Negative (Negative); Mucus,Urine Occasional /hpf; Nitrite,Urine Negative (Negative); PH, Urine 6.5 (5.0-8.0); Protein,Urine Negative (Negative); RBC,Urine <1 /hpf (0-5); Squamous Epithelial Cell,Urine 7 /hpf (0-4); Urobilinogen,Urine <2.0 mg/dL (<2.0); WBC,Urine 4 /hpf (0-5)
[2024-04-30] MEDS: ATORVASTATIN 40 MG TAB PO SCH (19:56)
[2024-04-30] MEDS: LITHIUM CARBONATE 300 MG CAP PO SCH (19:57)
--- NOTE | 2024-05-01 18:37 | P.PN ---
Progress Note - Text Progress Note Date: 05/01/24 I was called by the nurse as patient is complaining of acute pain. Patient has been on Motrin and Tylenol and Orajel which is not helping with her pain. I started the patient on Augmentin. Patient will need to follow-up with dentist once discharged.
[2024-05-01] MEDS: AMOXIC-POT CLAV 875-125MG 1 EACH TAB PO SCH (20:07)
--- NOTE | 2024-05-01 21:20 | P.PN ---
Progress Note - Text Progress Note Date: 05/01/24 Follow-up Mediation Review Chief Complaint: I am good better Subjective: The patient noted that she is feeling much better. She wanted me to talk to her boyfriend. The patient noted that she is going to be to him. The patient appeared in good spirits. She was not angry, irritable, demanding or agitated. She did exhibit mild grandiose ideas and plan for her circumstances. Her demeanor was elated. She wanted to know her Li level. The patient was told that it will be available tomorrow. She was told that she may be discharged it level is normal. The patient did not get upset. She politely accepted it. Her boyfriend was called while she was in the office. Her boyfriend confirmed that she is coming to live with him. He also stated that her mother will be keeping her company when he is at works. The patient-maintained goal directed good conversation. duration The patient has been attending the groups. The participation is good. The interaction with staff and peers is good. The patient is compliant with treatment recommendations. Leading questions: The patient denied Depression and Anxiety. Denied SI or HI. Denied symptoms consistent with psychosis Sleep and Appetite: Sleep is adequate. Appetite is good. Change in family/ living/job/financial/daily routine: No change. Change in medical condition: No change. Change in medications: No change. Side effects from Medications: None noticed. Allergies: No change. Objective- MSE: Alert and attentive. Orientation times three. Dressed and Groomed: Appropriately. Pleasant and cooperative. Psychomotor Activity: Normal. Speech: Normal in tone, quality, and quantity. Mood: I am fine Affect: Elated. SI or HI: None. Perceptual disturbance: None. Thought Content: Mild grandiose ideations. No paranoia or other delusional thinking noted. Thought Process: Normal Cognition: Intact Judgment and Insight: Fair AIMS: Normal. Labs: No new labs. Diagnosis: No change. Plan and Recommendations: Continue current Medications. Monitor MS and side effects of medications and adjust medications accordingly. Provide supportive psychotherapy. The patient provided psychoeducation and advised The patient provided Substance abuse counseling. Smoke cessation therapy. The patient to attend mensah activities. Medication Consent with explanation of risk/benefits and side effects: Explained and obtained.
[2024-05-02 07:11] VITALS: BP 134/74; PULSE 102; TEMP 98
--- NOTE | 2024-05-02 16:45 | P.DS ---
Providers Date of admission: 04/24/24 09:14 Expected date of discharge: 05/02/24 Attending physician: Bandar Bennett MD Consults: 04/24/24 09:17 Consult Physician Routine Consulting Provider: Marj Betancourt Consult Reason/Comments: H and P Do you want consulting provider notified?: Yes Primary care physician: Vic Porras - Discharge Diagnosis(es) (1) Bipolar disorder, manic phase Status: Acute Priority: High Hospital Course: Discharge Summary HPI: Identifying Data: Ms. Marcelo is 43 years old,, , white female, who lives in [place], [place] in a manufactured home. Chief Complaint: No issues, boyfriend called the police The patient noted that the police brought her to the ER with a petition. The patient noted that she was arranging things at home, which her boyfriend thought was not right. The patient was unable to give meaningful history because of severe flight of ideas and loose association. She was losing train of thought frequently and jumping from subjects to subjects. The patient was restless, fidgety and getting up frequently to get coffee. As per patient she stopped taking her medications 3 months ago. The patient noted that she is Bipolar and goes in circles, she stated, I like direct questions. The patient was taking Prozac and Xanax, as per patient. Past Psychiatric History: The patient noted that she started seeking mental health since age 14. She noted that she was admitted to this hospital in 2020. Past Medication History: Prozac, Zoloft, Effexor, Paxil, Wellbutrin, Prolixin, Cogentin, Zyprexa, Leading questions: The patient denied depression and anxiety. The patient noted that her mind is racing and has millions of thoughts in her mind. She was Adderall and Coffee. IDenied SI or HI. Denied symptoms consistent with psychosis. Drugs and alcohol history: The patient admitted to using Marijuana and Alcohol. She did methamphetamine, Xanax in the past. She denied use abuse of opioids Tobacco use: The patient smokes 1 pack a day and also Vapes. Hospital Course: After admission, the patient was involved in pharmacotherapy, mensah milieu, and individual psychodynamic psychotherapy. The patient was started on Davis and Prolixin. The dose was titrated to obtain the desire effects. The blood level was therapeutic at the time of discharge. The patient tolerated medications well without any side effects. The patient was also involved in mensah activities. The patient attended the groups and participated well. The patient interacted with peers and staff well. The patient slowly started showing improvement. The hospital course was uneventful. The patient symptoms of depression, suicidal and homicidal ideations abated. The psychosis improved. The patient was stable to be discharged to out-patient care. The patient did not have any guns or weapons in possession at home. MSE: Alert and attentive. Orientation times three Dressed and Groomed: Appropriately. Pleasant and cooperative. Psychomotor Activity: Increased. Speech: Normal in tone, quality, over productive, push of speech. Mood: I am normal Affect: Elated, expansive SI or HI: None. Perceptual disturbance: None. Thought Content: Grandiosity. No paranoia or other delusional thinking noted. Thought Process: Flight of ideas, loose association, disorganized. Cognition: Intact Judgment and Insight: Poor AIMS: Normal Diagnosis: Bipolar Disorder, Manic phase I Plan: The patient to be discharged today. The patient has attained good improvement since admission. He is stable to be followed as an outpatient. The patient is not suicidal or Homicidal. He does not pose any harm to self or others. The patient remains at a greater risk of self-harm or harm to others than general population on a chronic basis due to psychiatric illness and substance abuse. The patient will continue taking following medication post discharge. The importance of medication compliance and maintaining regular appointments at psychiatric out-pt and PCP clinic was explained and encouraged. The patient was also advised to seek alcohol counseling and attend AA/NA meetings. The understood and agreed with the recommendations. pharmaceutical worker to arrange for and conduct family meeting to ensure safety upon discharge and answer any questions. The social group worker to arrange for patients follow-up appointments at [facility] for psychiatric care along with follow-up with PCP. The patient provided psychoeducation. Advised to call 911 or go to nearest ED or call this hospital in case of acute worsening of symptomatology, severe side effects or having suicidal, homicidal thoughts and feeling unsafe at home. Plan - Discharge Summary Discharge Rx Participant: No New Discharge Prescriptions: New Amoxic-Pot Clav 875-125Mg [Augmentin 875-125] 1 each PO BID 7 Days #14 tab Davis Carbonate 300 mg PO BID@0900,1300 15 Days #30 cap Davis Carbonate 600 mg PO HS 14 Days #30 cap fluPHENAZine [Prolixin] 10 mg PO HS 14 Days #14 tab traZODone HCL [Desyrel] 100 mg PO HS 14 Days #14 tab Continue Fluticasone Nasal Bland [Flonase Nasal Bland] 1 spray EA NOSTRIL DAILY Albuterol Sulfate [Ventolin HFA] 2 puff INHALATION RT-Q4H PRN PRN Reason: Shortness Of Breath Loratadine [Claritin] 10 mg PO DAILY Discontinued ALPRAZolam [Xanax] 0.5 mg PO TID PRN PRN Reason: Anxiety FLUoxetine HCL [PROzac] 20 mg PO DAILY Discharge Medication List Fluticasone Nasal [place] [Flonase Nasal Bland] 1 spray EA NOSTRIL DAILY 03/24/21 [History] Loratadine [Claritin] 10 mg PO DAILY 03/24/21 [History] Albuterol Sulfate [Ventolin HFA] 2 puff INHALATION RT-Q4H PRN 04/24/24 [History] Amoxic-Pot Clav 875-125Mg [Augmentin 875-125] 1 each PO BID 7 Days #14 tab 05/02/24 [Rx] Davis Carbonate 300 mg PO BID@0900,1300 15 Days #30 cap 05/02/24 [Rx] Davis Carbonate 600 mg PO HS 14 Days #30 cap 05/02/24 [Rx] fluPHENAZine [Prolixin] 10 mg PO HS 14 Days #14 tab 05/02/24 [Rx] traZODone HCL [Desyrel] 100 mg PO HS 14 Days #14 tab 05/02/24 [Rx] Follow up Appointment(s)/Referral(s): [facility] [Outside] - 05/06/24 3:15 pm Vic Porras DO [Primary Care Provider] - 1-2 days Patient Instructions/Handouts: Bipolar Disorder (DC) Activity/Diet/Wound Care/Special Instructions: Avoid the use of street drugs and alcohol. Take all medications as prescribed. When you are in need of refills on your medications, please contact your medical provider and/or outpatient psychiatrist/provider to have this done. Please go to your scheduled outpatient appointment for aftercare treatment. If symptoms return or become worse, call the crisis line at and/or go to the nearest emergency room for evaluation. National Suicide Hotline 985 Discharge Disposition: HOME SELF-CARE
== END 2024-05-02 15:55 | disposition home or self-care (01) | DRG 753 ==
LOC: EC 03:54 → 3MHU 09:14
PROVIDERS: ADMIT Psychiatry & Neurology Psychiatry; ATTEND Psychiatry & Neurology Psychiatry
DX: F31.2 Bipolar disorder, current episode manic severe with psychotic features (principal); E78.5 Hyperlipidemia, unspecified; Z91.128 Patient's intentional underdosing of medication regimen for other reason; F12.10 Cannabis abuse, uncomplicated; J45.909 Unspecified asthma, uncomplicated; Z11.52 Encounter for screening for COVID-19; Z28.310 Unvaccinated for COVID-19; K12.0 Recurrent oral aphthae; K08.89 Other specified disorders of teeth and supporting structures; R74.01 Elevation of levels of liver transaminase levels; R35.0 Frequency of micturition; R39.15 Urgency of urination; F17.210 Nicotine dependence, cigarettes, uncomplicated; F17.290 Nicotine dependence, other tobacco product, uncomplicated; Z71.6 Tobacco abuse counseling; Z79.899 Other long term (current) drug therapy; Z59.819 Housing instability, housed unspecified; Z59.12 Inadequate housing utilities; Z59.41 Food insecurity; Z59.82 Transportation insecurity; Z59.6 Low income; Z63.8 Other specified problems related to primary support group; Z71.41 Alcohol abuse counseling and surveillance of alcoholic; Z71.51 Drug abuse counseling and surveillance of drug abuser; Z88.8 Allergy status to other drugs, medicaments and biological substances
CPT/HCPCS: 36415; 80053; 80061; 80076; 80178; 80306; 80320; 81001; 81025; 82075; 83036; 84443; 84484; 85025; 87636; 93005; 96361; 96374; 96375; 99285

== ENCOUNTER 2024-05-24 12:28 | Inpatient (IN) | payer MEDICAID, OTHER ==
--- NOTE | 2024-05-24 13:57 | ED ---
General Adult HPI - General Chief complaint: Psychiatric Symptoms Stated complaint: petition Time Seen by Provider: 05/24/24 13:30 Source: patient, RN notes reviewed, old records reviewed Mode of arrival: ambulatory Limitations: no limitations - History of Present Illness Initial comments: this is a 43-year-old female who has been petition to be evaluated in the emergency department. Patient according to the petition has been wandering around without her pants on and she has also been very argumentative as well as destroying pupils probably. Patient is self admits that she's been very anxious and this morning she smoked marijuana which made her even more anxious. Patient is requesting some antianxiety medicines. Patient denies suicidal or homicidal ideations. Patient denies any recent fever chills per patient denies chest pain difficult breathing shortest breath. - Related Data Home Medications Medication Instructions Recorded Confirmed Fluticasone Nasal [place] [Flonase 1 spray EA NOSTRIL DAILY 03/24/21 04/24/24 Nasal [place]] Loratadine [Claritin] 10 mg PO DAILY 03/24/21 04/24/24 Albuterol Sulfate [Ventolin HFA] 2 puff INHALATION RT-Q4H PRN 04/24/24 04/24/24 Previous Rx's Medication Instructions Recorded Amoxic-Pot Clav 875-125Mg 1 each PO BID 7 Days #14 tab 05/02/24 [Augmentin 875-125] Vale Carbonate 300 mg PO BID@0900,1300 15 Days 05/02/24 #30 cap Vale Carbonate 600 mg PO HS 14 Days #30 cap 05/02/24 fluPHENAZine [Prolixin] 10 mg PO HS 14 Days #14 tab 05/02/24 traZODone HCL [Desyrel] 100 mg PO HS 14 Days #14 tab 05/02/24 Allergies Allergy/AdvReac Type Severity Reaction Status Date / Time prednisone Allergy Unknown Verified 05/24/24 12:46 Review of Systems ROS Statement: Those systems with pertinent positive or pertinent negative responses have been documented in the HPI. ROS Other: All systems not noted in ROS Statement are negative. Past Medical History Past Medical History: Unable to Obtain History of Any Multi-Drug Resistant Organisms: None Reported Past Surgical History: Unable to Obtain Past Psychological History: ADD/ADHD, Bipolar, Depression, Panic Disorder, Schizophrenia Smoking Status: Current every day smoker, Vaper Past Alcohol Use History: None Reported Past Drug Use History: Marijuana - Past Family History Mother Family Medical History: COPD General Exam Limitations: no limitations General appearance: alert Head exam: Present: atraumatic Eye exam: Present: normal appearance Pupils: Present: normal accommodation ENT exam: Present: normal exam Respiratory exam: Present: normal lung sounds bilaterally Cardiovascular Exam: Present: regular rate, normal rhythm GI/Abdominal exam: Present: soft, normal bowel sounds Neurological exam: Present: alert, oriented X3 Psychiatric exam: Present: agitated, anxious Skin exam: Present: warm, dry, intact, normal color Course Vital Signs 05/24/24 12:41 Temperature 98.3 F Pulse Rate 74 Respiratory 18 Rate Blood Pressure 167/77 O2 Sat by Pulse 96 Oximetry Medical Decision Making - Medical Decision Making Was pt. sent in by a medical professional or institution (Dr. PA, UTILITY WORKER, urgent care, hospital, or care home...) When possible be specific @ -Patient was sent in because the mother petitioned her Did you speak to anyone other than the patient for history (EMS, parent, family, police, friend...)? What history was obtained from this source @ -[No] Did you review nursing and triage notes (agree or disagree)? Why? @ -[I reviewed and agree with nursing and triage notes] Were old charts reviewed (outside hosp., previous admission, EMS record, old EKG, old radiological studies, urgent care reports/EKG's, care home records)? Report findings @ -[No old charts were reviewed] Differential Diagnosis (chest pain, altered mental status, abdominal pain women, abdominal pain men, vaginal bleeding, weakness, fever, dyspnea, syncope, headache, dizziness, GI bleed, back pain, seizure, CVA, palpatations, mental health, musculoskeletal)? @ -Differential Mental Health Depression, anxiety, bipolar, psychosis, schizophrenia, borderline personality, situational depression, adjustment disorder, behavioral disorder, brain tumor, malingering, substance abuse, encephalopathy, medication reaction, dementia, hypothyroidism, degenerative neurologic disorder, lupus.... This is not meant to be all-inclusive list EKG interpreted by me (3pts min.). @ -[As above] X-rays interpreted by me (1pt min.). @ -[None done] CT interpreted by me (1pt min.). @ -[None done] U/S interpreted by me (1pt. min.). @ -[None done] What testing was considered but not performed or refused? (CT, X-rays, U/S, labs)? Why? @ -[None] What meds were considered but not given or refused? Why? @ -[None] Did you discuss the management of the patient with other professionals (professionals i.e. , PA, UTILITY WORKER, lab, RT, psych nurse, health and social care teacher, agency appointments supervisor, teacher, emergency response officer, case management social worker)? Give summary @ -EPS evaluated the patient and determined the patient needed to be admitted Was smoking cessation discussed for >3mins.? @ -[No] Was critical care preformed (if so, how long)? @ -[No] Were there social determinants of health that impacted care today? How? (Homelessness, low income, unemployed, alcoholism, drug addiction, transportation, low edu. Level, literacy, decrease access to med. care, shelter, rehab)? @ -[No] Was there de-escalation of care discussed even if they declined (Discuss DNR or withdrawal of care, Hospice)? DNR status @ -[No] What co-morbidities impacted this encounter? (DM, HTN, Smoking, COPD, CAD, Cancer, CVA, ARF, Chemo, Hep., AIDS, mental health diagnosis, sleep apnea, morbid obesity)? @ -[None] Was patient admitted / discharged? Hospital course, mention meds given and route, prescriptions, significant lab abnormalities, going to OR and other pertinent info. @ -Patient was in a manic state and EPS along with the psychiatrist agreed the patient needed to be admitted Undiagnosed new problem with uncertain prognosis? @ -[No] Drug Therapy requiring intensive monitoring for toxicity (Heparin, Nitro, Insulin, Cardizem)? @ -[No] Were any procedures done? @ -[No] Diagnosis/symptom? @ -Olive Acute, or Chronic, or Acute on Chronic? @ -Acute Uncomplicated (without systemic symptoms) or Complicated (systemic symptoms)? @ -Complicated Side effects of treatment? @ -[No] Exacerbation, Progression, or Severe Exacerbation? @ -[No] Poses a threat to life or bodily function? How? (Chest pain, [place], [place], pneumonia, PE, COPD, DKA, ARF, appy, cholecystitis, CVA, Diverticulitis, Homicidal, Suicidal, threat to staff... and all critical care pts) @ -[No] - Lab Data Lab Results 05/24/24 Range/Units 14:38 Urine Opiates Screen Not Detected (NotDetected) Ur Oxycodone Screen Not Detected (NotDetected) Urine Methadone Screen Not Detected (NotDetected) Ur Barbiturates Screen Not Detected (NotDetected) U Tricyclic Antidepress Not Detected (NotDetected) Ur Phencyclidine Scrn Not Detected (NotDetected) Ur Amphetamines Screen Not Detected (NotDetected) U Methamphetamines Scrn Not Detected (NotDetected) U Benzodiazepines Scrn Detected H (NotDetected) Urine Cocaine Screen Not Detected (NotDetected) U Marijuana (THC) Screen Detected H (NotDetected) Disposition Clinical Impression: Bipolar disorder, manic phase Disposition: ADMITTED IP TO THIS HOSP Referrals: Vic Porras DO [Primary Care Provider] - 1-2 days Time of Disposition: 17:01
[2024-05-24 15:06] LABS: Cocaine Screen,Urine Not Detected (NotDetected); Phencyclidine Screen,Urine Not Detected (NotDetected); Urn Cannabinoid Scrn Detected (NotDetected)
[2024-05-24 15:07] LABS: Amphetamine Screen,Urine Not Detected (NotDetected); Barbiturate Screen,Urine Not Detected (NotDetected); Benzodiazepines Screen,Urine Detected (NotDetected); Methadone Screen, Urine Not Detected (NotDetected); Opiate Screen,Urine Not Detected (NotDetected); Oxycodone Screen, Urine Not Detected (NotDetected); Tricyclic Antidepressant,Urine Not Detected (NotDetected)
[2024-05-24] MEDS: ALPRAZolam 0.5 MG TAB PO STA (16:36)
[2024-05-24] MEDS ORDERED: HALOPERIDOL LACTATE 5 MG/ML 1 ML VIAL IM PRN (21:23)
[2024-05-24] MEDS ORDERED: LORazepam 2 MG/ML INJ IM PRN (21:23)
[2024-05-24] MEDS ORDERED: MAGNESIUM HYDROXIDE 2,400 MG/30 ML CUP PO PRN (21:23)
[2024-05-24 22:11] LABS: Appearance,Urine Clear (Clear); Bilirubin,Urine Negative (Negative); Blood,Urine Negative (Negative); Color,Urine Colorless; Glucose,Urine (UA) Negative (Negative); Ketones,Urine Trace (Negative); Leukocyte Esterase,Urine Negative (Negative); Nitrite,Urine Negative (Negative); PH, Urine 6.5 (5.0-8.0); Protein,Urine Negative (Negative); Specific Gravity,Urine 1.004 (1.001-1.035); Urobilinogen,Urine <2.0 mg/dL (<2.0)
[2024-05-24] MEDS: MAG HYDROX/AL HYDROX/SIMETH 355 ML BOTTLE PO PRN (22:48)
[2024-05-24] MEDS: LORazepam 1 MG TAB PO PRN (22:49)
--- NOTE | 2024-05-25 01:21 | P.CONS ---
History of Present Illness - Reason for Consult Consult date: 05/25/24 - History of Present Illness The patient is a 43-year-old female with a PMH of marijuana abuse and anxiety who presented to the emergency room with complaints of worsening anxiety. She was admitted to the mental health unit where she was seen and evaluated accompanied by mental health unit RN. The patient reports that she has been multiple social stressors which is causing her anxiety to worsen. She does report some urinary complaints including urinary hesitancy and occasionally some urgency. She does report a prior history of UTIs for which she recently completed an oral course of antibiotics. Denied experiencing abdominal pain, fever, chills, hematuria, or dysuria. Review of systems: Pertinent positives and negatives as discussed in HPI, a complete review of systems was performed and all other systems are negative. Physical examination: General: non toxic, no distress, appears at stated age, obese Derm: no unusual rashes/lesions, no unusual ecchymoses, warm, dry Head: atraumatic, normocephalic, symmetric Eyes: EOMI, no lid lag, anicteric sclera ENT: Nose and ears atraumatic, no thrush, no pharyngeal erythema Neck: trachea midline, supple Mouth: no lip lesion, mucus membranes moist Cardiovascular: S1S2 reg, no murmur, no edema Lungs: CTA bilateral, no rhonchi, no rales , no accessory muscle use Abdominal: soft, nontender to palpation, no guarding Ext: no gross muscle atrophy, no contractures, Neuro: No gross focal neuro deficits noted Psych: Alert, oriented, appropriate affect Assessment: Marijuana abuse Anxiety Urinary complaints, UA unremarkable Imaging: None performed Data Review: Laboratory evaluation was reviewed with urine toxicology positive for marijuana with the UA unremarkable Plan: Strongly advised on importance of cessation for marijuana abuse Defer management of medical primary psychiatry service Thank you for allowing us to participate in the care of this patient. We will follow peripherally. Do not hesitate to contact us with questions. Someone can be reached from the [facility] hospitalist group at all hours of the day at [phone]. Past Medical History Past Medical History: Asthma History of Any Multi-Drug Resistant Organisms: None Reported Past Surgical History: No Surgical Hx Reported Past Anesthesia/Blood Transfusion Reactions: Unable to Obtain Smoking Status: Current every day smoker - Past Family History Mother Family Medical History: COPD Medications and Allergies Home Medications Medication Instructions Recorded Confirmed Type Fluticasone Nasal [place] [Flonase 1 spray EA NOSTRIL DAILY PRN 03/24/21 05/24/24 History Nasal [place]] Loratadine [Claritin] 10 mg PO DAILY PRN 03/24/21 05/24/24 History ALPRAZolam [Xanax] 0.5 mg PO Q6H PRN 05/24/24 05/24/24 History FLUoxetine HCL [PROzac] 20 mg PO DAILY@1500 05/24/24 05/24/24 History Omeprazole 20 mg PO DAILY PRN 05/24/24 05/24/24 History Allergies Allergy/AdvReac Type Severity Reaction Status Date / Time prednisone Allergy Unknown Verified 05/24/24 18:24 Physical Exam Vitals: Vital Signs Temp Pulse Pulse Resp BP BP Pulse Ox 05/24/24 23:04 96.8 F L 72 22 138/69 98 05/24/24 17:47 77 18 163/89 97 05/24/24 12:41 98.3 F 74 18 167/77 96 Intake and Output 05/24/24 05/24/24 05/25/24 14:59 22:59 06:59 Other: Weight 89.811 kg 83.733 kg Results Labs: Abnormal Lab Results - Last 24 Hours (Table) 05/24/24 05/24/24 Range/Units 14:38 14:38 Urine Ketones Trace H (Negative) U Benzodiazepines Scrn Detected H (NotDetected) U Marijuana (THC) Screen Detected H (NotDetected)
[2024-05-25 06:53] LABS: Basophils % (A) 0 %; Eosinophils # (A) 0.2 k/uL (0-0.7); Eosinophils % (A) 2 %; HCT 42.6 % (34.0-46.0); HGB 13.6 gm/dL (11.4-16.0); Lymphocytes # (A) 1.8 k/uL (1.0-4.8); Lymphocytes % (A) 24 %; MCHC 31.9 g/dL (31.0-37.0); MCV 97.2 fL (80.0-100.0); Mean Platelet Volume 8.6; Monocytes # (A) 0.5 k/uL (0-1.0); Monocytes % (A) 7 %; Neutrophils # (A) 4.9 k/uL (1.3-7.7); Neutrophils % (A) 65 %; Platelet Count 250 k/uL (150-450); RBC 4.38 m/uL (3.80-5.40); RDW 14.4 % (11.5-15.5); WBC 7.5 k/uL (3.8-10.6)
[2024-05-25 07:20] LABS: ALT 56 U/L (4-34); AST 71 U/L (14-36); African American GFR (CKD) >90 (>60 ml/min/1.73 sqM); Albumin 4.1 g/dL (3.5-5.0); Alkaline Phosphatase 76 U/L (38-126); Anion Gap 7 mmol/L; Bilirubin, Delta 0.4 mg/dL (0.0-0.2); Bilirubin,Unconjugated 0.4 mg/dL (0.0-1.1); Blood Urea Nitrogen 12 mg/dL (7-17); Calcium 9.7 mg/dL (8.4-10.2); Carbon Dioxide 25 mmol/L (22-30); Chloride 108 mmol/L (98-107); Glucose 101 mg/dL (74-99); Non-African American GFR(CKD) >90 (>60 ml/min/1.73 sqM); Potassium 4.1 mmol/L (3.5-5.1); Sodium 140 mmol/L (137-145); Total Bilirubin 0.8 mg/dL (0.2-1.3); Total Protein 6.7 g/dL (6.3-8.2)
[2024-05-25] MEDS: NICOTINE 14MG/24HR PATCH TRANSDERM SCH (08:12)
[2024-05-25 13:00] LABS: Chol/HDL Ratio 5.38 Ratio; LDL Cholesterol,Calculated 203.9 mg/dL (0.0-131.0)
[2024-05-25] MEDS: QUEtiapine 50 MG TAB PO SCH (14:53)
--- NOTE | 2024-05-25 15:41 | P.HP ---
Psychiatric H&P - . History & Physical: Allergies Allergy/AdvReac Type Severity Reaction Status Date / Time prednisone Allergy Unknown Verified 05/24/24 18:24 Vital Signs Temp 97.9 F 05/25/24 06:00 Pulse 92 05/25/24 06:00 Resp 17 05/25/24 06:00 BP 152/86 05/25/24 06:00 Pulse Ox 95 05/25/24 06:00 FiO2 Intake & Output 05/24/24 05/25/24 05/25/24 18:59 06:59 18:59 Weight 89.811 kg 83.733 kg Laboratory Last Values WBC 7.5 k/uL (3.8-10.6) 05/25/24 06:45 RBC 4.38 m/uL (3.80-5.40) 05/25/24 06:45 Hgb 13.6 gm/dL (11.4-16.0) 05/25/24 06:45 Hct 42.6 % (34.0-46.0) 05/25/24 06:45 MCV 97.2 fL (80.0-100.0) 05/25/24 06:45 MCH 31.0 pg (25.0-35.0) 05/25/24 06:45 MCHC 31.9 g/dL (31.0-37.0) 05/25/24 06:45 RDW 14.4 % (11.5-15.5) 05/25/24 06:45 Plt Count 250 k/uL (150-450) 05/25/24 06:45 MPV 8.6 05/25/24 06:45 Neutrophils % 65 % 05/25/24 06:45 Lymphocytes % 24 % 05/25/24 06:45 Monocytes % 7 % 05/25/24 06:45 Eosinophils % 2 % 05/25/24 06:45 Basophils % 0 % 05/25/24 06:45 Neutrophils # 4.9 k/uL (1.3-7.7) 05/25/24 06:45 Lymphocytes # 1.8 k/uL (1.0-4.8) 05/25/24 06:45 Monocytes # 0.5 k/uL (0-1.0) 05/25/24 06:45 Eosinophils # 0.2 k/uL (0-0.7) 05/25/24 06:45 Basophils # 0.0 k/uL (0-0.2) 05/25/24 06:45 Sodium 140 mmol/L (137-145) 05/25/24 06:40 Potassium 4.1 mmol/L (3.5-5.1) 05/25/24 06:40 Chloride 108 mmol/L (98-107) H 05/25/24 06:40 Carbon Dioxide 25 mmol/L (22-30) 05/25/24 06:40 Anion Gap 7 mmol/L 05/25/24 06:40 BUN 12 mg/dL (7-17) 05/25/24 06:40 Creatinine 0.57 mg/dL (0.52-1.04) 05/25/24 06:40 Est GFR (CKD-EPI)AfAm >90 (>60 ml/min/1.73 sqM) 05/25/24 06:40 Est GFR (CKD-EPI)NonAf >90 (>60 ml/min/1.73 sqM) 05/25/24 06:40 Glucose 101 mg/dL (74-99) H 05/25/24 06:[address] Glu mg/dL 120 mg/dL 05/25/24 06:45 Hemoglobin A1c 5.8 % (<=6.0) 05/25/24 06:45 Calcium 9.7 mg/dL (8.4-10.2) 05/25/24 06:40 Total Bilirubin 0.8 mg/dL (0.2-1.3) 05/25/24 06:40 Conjugated Bilirubin 0.0 mg/dL (0.0-0.3) 05/25/24 06:40 Unconjugated Bilirubin 0.4 mg/dL (0.0-1.1) 05/25/24 06:40 Delta Bilirubin 0.4 mg/dL (0.0-0.2) H 05/25/24 06:40 AST 71 U/L (14-36) H 05/25/24 06:40 ALT 56 U/L (4-34) H 05/25/24 06:40 Alkaline Phosphatase 76 U/L (38-126) 05/25/24 06:40 Total Protein 6.7 g/dL (6.3-8.2) 05/25/24 06:40 Albumin 4.1 g/dL (3.5-5.0) 05/25/24 06:40 Triglycerides 112.00 mg/dL (0.00-149.00) 05/25/24 06:40 Cholesterol 278.00 mg/dL (0.00-200.00) H 05/25/24 06:40 LDL Cholesterol, Calc 203.9 mg/dL (0.0-131.0) H 05/25/24 06:40 VLDL Cholesterol, Calc 22.40 mg/dL (5.00-40.00) 05/25/24 06:40 HDL Cholesterol 51.70 mg/dL (40.00-60.00) 05/25/24 06:40 Cholesterol/HDL Ratio 5.38 Ratio 05/25/24 06:40 TSH 3.560 mIU/L (0.465-4.680) 05/25/24 06:40 Urine Color Colorless 05/24/24 14:38 Urine Appearance Clear (Clear) 05/24/24 14:38 Urine pH 6.5 (5.0-8.0) 05/24/24 14:38 Ur Specific [place] 1.004 (1.001-1.035) 05/24/24 14:38 Urine Protein Negative (Negative) 05/24/24 14:38 Urine Glucose (UA) Negative (Negative) 05/24/24 14:38 Urine Ketones Trace (Negative) H 05/24/24 14:38 Urine Blood Negative (Negative) 05/24/24 14:38 Urine Nitrite Negative (Negative) 05/24/24 14:38 Urine Bilirubin Negative (Negative) 05/24/24 14:38 Urine Urobilinogen <2.0 mg/dL (<2.0) 05/24/24 14:38 Ur Leukocyte Esterase Negative (Negative) 05/24/24 14:38 Urine HCG, Qual Not Detected (Not Detectd) 05/24/24 14:38 Urine Opiates Screen Not Detected (NotDetected) 05/24/24 14:38 Ur Oxycodone Screen Not Detected (NotDetected) 05/24/24 14:38 Urine Methadone Screen Not Detected (NotDetected) 05/24/24 14:38 Ur Barbiturates Screen Not Detected (NotDetected) 05/24/24 14:38 U Tricyclic Antidepress Not Detected (NotDetected) 05/24/24 14:38 Ur Phencyclidine Scrn Not Detected (NotDetected) 05/24/24 14:38 Ur Amphetamines Screen Not Detected (NotDetected) 05/24/24 14:38 U Methamphetamines Scrn Not Detected (NotDetected) 05/24/24 14:38 U Benzodiazepines Scrn Detected (NotDetected) H 05/24/24 14:38 Urine Cocaine Screen Not Detected (NotDetected) 05/24/24 14:38 U Marijuana (THC) Screen Detected (NotDetected) H 05/24/24 14:38 SARS-CoV-2 (PCR) Not Detected (Not Detectd) 05/24/24 17:46 Identifying Data: Ms. Marcelo is a 43 year old,, , white female, who lives in [place], [place] in a manufactured home. Chief Complaint: mom thought I was manic but I was just happy" History of Psychiatric Illness- Per chart, patient has been wandering around without her pants on and she has also been very argumentative as well as destroying property. On inerview, patient reports no complains except for anxiety. SHe states that she is "very rational and very sane" and that she "does not need to be here.". Reports "positive mood" Reports high energy, very high mood, trouble concentrating which she contributes to ADHD, low sleep, and irritability. She states, "I don't need medication, I want to be natural." Agreeable to taking seroquel. Past Psychiatric History: Bipolar disorder. The patient noted that she started seeking mental health since age 14. She noted that she was admitted to this hospital in 2020. She was admitted last month and discharged on lithiumm, prolixin, and trazodone. Past Medication History: Prozac, Zoloft, Effexor, Paxil, Wellbutrin, Prolixin, Cogentin, Zyprexa, lithium Drugs and alcohol history: The patient admitted to using Marijuana and Alcohol (1-2 beers occasionally). UDS was positive for benzos. She did methamphetamine, Xanax in the past. She denied use abuse of opioids Tobacco use: The patient smokes 1 pack a day and also Vapes. Past Medical history: none Family History of Psychiatric Disorder: Her mother has h/o Bipolar disorder, Sister has anxiety, brother has bipolar disorder. Social History: The patient was born in [place]. The patient dropped out of school at age 14. She completed GED. 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 Allergies: None as per patient. Objective: MSE: Appearance: 43 year old female, overweight, appears older than stated age, in no acute distress Behavior: cooperative Psychomotor Activity: Increased. Speech: increased rate Mood: positive Affect: Elated, expansive SI or HI: None. Perceptual disturbance: None. Thought Content: Grandiosity. No paranoia or other delusional thinking noted. Thought Process: goal directed Cognition: Intact Judgment and Insight: Poor AIMS: Normal Labs: Available labs reviewed. Diagnosis: Bipolar Disorder, Manic phase Plan and Recommendations: Start seroquel 50 mg daily and 100 mg qhs Provide supportive psychotherapy and psychoeducation. The patient provided psychoeducation. Smoke cessation therapy. The patient to attend [facility]. CBC with Diff, CMP, TSH, Lipid Profile, HbA1c, EKG, Test ordered.
[2024-05-25] MEDS: IBUPROFEN 600 MG TAB PO PRN (16:42)
[2024-05-25] MEDS: QUEtiapine 100 MG TAB PO SCH (21:16)
[2024-05-25] MEDS: NICOTINE GUM (POLACRILEX) 2 MG GUM BUCCAL PRN (22:40)
[2024-05-25] MEDS: ALBUTEROL INHALER 60 PUFF/8 GM INHALER (MHU) INHALATION PRN (22:40)
[2024-05-25] MEDS: traZODone HCL 50 MG TAB PO PRN (23:59)
--- NOTE | 2024-05-26 15:11 | P.PN ---
Progress Note - Text Interval history: Patient was seen [wandering the hallways] and was directable and agreeable to speak with functional tester typewriters. continues to state that she should not be admitted to the unit. States that Adderall and benzodiazepines have helped her in the past. States that he slept well, denies high energy, denies difficulty focusing.. At this time patient denies any suicidal or homicidal ideations intent or plan. Denies any Auditory or visual hallucinations. Patient denies any side effects from the medications and has been compliant with meds. Mental status exam: General Appearance: [Patient appears to be stated age is alert, directable, and cooperative.] Behavior: [No agitated behavior. Patient is calm and directable] Speech: levator trait Mood/Affect: Mood is improving mildly, affect is congruent and constricted. Suicidality/Homicidality: Patient denies having any suicidal or homicidal ideation intent or plan. Perceptions: Patient denies any auditory or visual hallucinations. Though content/process: [There is no evidence of any delusional thought content and thought process is linear and goal-directed.] Memory and concentration: AOX3, grossly intact for the purposes of this session Judgment and insight: poor Assessment/Plan: Continue with current diagnosis. Patient continues to meet criteria for inpatient psychiatric admission for symptom stabilization and safety.[Patient will be maintained on current psychotropic medication regimen.] Monitor for medication compliance and for any psychotropic medication side effects. Will continue to monitor ongoing response to treatment. Encouraged participation in milieu.
--- NOTE | 2024-05-27 12:19 | P.PN ---
Progress Note - Text Progress Note Date: 05/27/24 Interval History: Patient was seen [wandering the hallways] and was directable and agreeable to speak with sign writer hand in the office. The patient states that she is doing ok today, she is rambling on about several topics. She claims to be sleeping well, and her appetite is good. Patient stated she is not manic, she is "just in a really good mood". At this time patient denies any suicidal or homicidal ideations, intent or plan. Patient denies any auditory, visual hallucinations and denies any para noia or delusions. Patient denies any side effects from the medications and has been compliant with meds. Mental Status Exam: General Appearance: Patient appears to be stated age, fair hygiene and grooming, casually dressed. Behavior: Patient is seated without any agitated behavior. Speech: Patient's speech is fluent and nonpressured. rambling Mood/Affect: Patient reports their mood is "better", affect is congruent and constricted Suicidality/Homicidality: Patient denies having any homicidal ideation intent or plan. Denies any suicidal ideations intent or plan Perceptions: Patient denies any visual hallucinations and denies any auditory hallucinations Though content/process: Patient is tangential, rambles. Loose associations. Memory and concentration: AOX3, grossly intact for the purposes of this session. Judgment and insight: poor Assessment: bipolar disorder, manic episode, without psychotic features cannabis use disorder Nicotine dependence Plan: -Patient continues to meet criteria for inpatient psychiatric admission for symptom stabilization and safety. Patient has signed [adult voluntary form and medication consent and was placed in patient's chart. -Medications: trazodone 50mg qhs prn for sleep, increase seroquel 50mg daily + 150mg qhs for mood stabilization, add lamictal 25mg bid, for mood/anxiety. Patient informed to watch for a rash, and was instructed to let sign writer hand or nursing staff know if she noticed a rash. -When necessary Ativan and Haldol for agitation/aggression -NRT - nicotine patch -SW on board for discharge planning. Encouraged the patient to participate in milieu. likely discharge late during the week vs monday if patient is improving psychiatrically.
[2024-05-27] MEDS: lamoTRIgine 25 MG TAB PO SCH (12:59)
[2024-05-27] MEDS: QUEtiapine 100 MG TAB PO SCH (20:30)
[2024-05-27] MEDS: haloperidoL 5 MG TAB PO PRN (21:02)
[2024-05-27] MEDS: LORazepam 1 MG TAB PO PRN (21:02)
[2024-05-27] MEDS: ACETAMINOPHEN TAB 325 MG TAB PO PRN (23:05)
[2024-05-28] MEDS: QUEtiapine 50 MG TAB PO STA (12:14)
[2024-05-28] MEDS: QUEtiapine 200 MG TAB PO SCH (20:00)
[2024-05-29] MEDS: QUEtiapine 100 MG TAB PO SCH ×2 (08:06→20:31)
--- NOTE | 2024-05-29 10:07 | P.PN ---
Progress Note - Text Progress Note Date: 05/28/24 Interval History: Patient was seen [wandering the hallways] and was directable and agreeable to speak with lead technical writer in the office. The patient states that she feels happy and cheerful. Patient did shower today. Patient stated that she woke up gasping for air, having an anxiety attack, and required PRN's last night. She feels that she may have sleep apnea, which causes her to wake up gasping for air. She states she is having anxiety attacks randomly, and sometimes she cannot control them. She states that her and her boyfriend have a "game plan" for her discharge. Formwork Carpenter explained safe discharge. Patient verbalized understanding. She claims her appetite is good. At this time patient denies any suicidal or homicidal ideations, intent or plan. Patient denies any auditory, visual hallucinations and denies any paranoia or delusions. Patient presents as hyperverbal, and having flight of ideas. Patient denies any side effects from the medications and has been compliant with meds. Mental Status Exam: General Appearance: Patient appears to be stated age, fair hygiene and grooming, casually dressed. Behavior: Patient is seated without any agitated behavior. Speech: Patient's speech is fluent and nonpressured. rambling, hyperverbal Mood/Affect: Patient reports their mood is "better", affect is congruent and constricted Suicidality/Homicidality: Patient denies having any homicidal ideation intent or plan. Denies any suicidal ideations intent or plan Perceptions: Patient denies any visual hallucinations and denies any auditory hallucinations Though content/process: Patient is tangential, rambles. Loose associations. flight of ideas Memory and concentration: AOX3, grossly intact for the purposes of this session. Judgment and insight: poor Assessment: bipolar disorder, manic episode, without psychotic features cannabis use disorder Nicotine dependence Plan: -Patient continues to meet criteria for inpatient psychiatric admission for symptom stabilization and safety. Patient has signed [adult voluntary form and medication consent and was placed in patient's chart. -Medications: trazodone 50mg qhs prn for sleep, increase seroquel 100mg daily + 200mg qhs for mood stabilization, lamictal 25mg bid, for mood/anxiety. Patient informed to watch for a rash, and was instructed to let lead technical writer or nursing staff know if she noticed a rash. -When necessary Ativan and Haldol for agitation/aggression -NRT - nicotine patch -SW on board for discharge planning. Encouraged the patient to participate in milieu. likely discharge late during the week vs monday if patient is improving psychiatrically.
--- NOTE | 2024-05-29 11:17 | P.PN ---
Progress Note - Text Progress Note Date: 05/29/24 Interval History: Patient was seen [wandering the hallways] and was directable and agreeable to speak with insurance underwriter sales in the office. The patient states that she feels really good and cheery today. She states she feels the medication is working well for her. She states that woke up in a panic, and needing Haldol last night. She states that she has not noticed a rash from the lamictal. She claims her appetite is good. At this time patient denies any suicidal or homicidal ideations, intent or plan. Patient denies any auditory, visual hallucinations and denies any paranoia or delusions. Patient thought process is improving. Patient denies any side effects from the medications and has been compliant with meds. Mental Status Exam: General Appearance: Patient appears to be stated age, fair hygiene and grooming, casually dressed. Behavior: Patient is seated without any agitated behavior. Speech: Patient's speech is fluent and nonpressured. rambling, mildly improving Mood/Affect: Patient reports their mood is "cheery", affect is congruent and constricted Suicidality/Homicidality: Patient denies having any homicidal ideation intent or plan. Denies any suicidal ideations intent or plan Perceptions: Patient denies any visual hallucinations and denies any auditory hallucinations Though content/process: improving Memory and concentration: AOX3, grossly intact for the purposes of this session. Judgment and insight: poor, mildly improving Assessment: bipolar disorder, manic episode, without psychotic features cannabis use disorder Nicotine dependence Plan: -Patient continues to meet criteria for inpatient psychiatric admission for symptom stabilization and safety. Patient has signed [adult voluntary form and medication consent and was placed in patient's chart. -Medications: trazodone 50mg qhs prn for sleep, increase seroquel 100mg daily + 300mg qhs for mood stabilization, increase lamictal 25mg tid for mood stabilization/anxiety. Patient informed to watch for a rash, and was instructed to let insurance underwriter sales or nursing staff know if she noticed a rash. Add melatonin 10 mg po qhs for sleep. -When necessary Ativan and Haldol for agitation/aggression -NRT - nicotine patch -SW on board for discharge planning. Encouraged the patient to participate in milieu. likely discharge if patient continues to improve psychiatrically.
[2024-05-29] MEDS: lamoTRIgine 25 MG TAB PO SCH (15:48)
[2024-05-29] MEDS: MELATONIN 5 MG TABLET PO SCH (20:30)
[2024-05-30] MEDS ORDERED: traZODone HCL 50 MG TAB PO PRN (10:10)
[2024-05-30] MEDS ORDERED: traZODone HCL 100 MG TAB PO PRN (10:10)
--- NOTE | 2024-05-30 11:23 | P.PN ---
Progress Note - Text Progress Note Date: 05/30/24 Interval History: Patient was seen [wandering the hallways] and was directable and agreeable to speak with documentation writer in the office. The patient states that she feels good today. She is focused on discharge. She uses her coping skills to calm down during the interview. because she became upset when told she would not be discharged today. She states she did not sleep well last night, due to her room mate snoring. nursing notes states that patient was awake until almost 4 am. She claims her appetite is good. continues to be somewhat hyperverbal however this is improving. At this time patient denies any suicidal or homicidal ideations, intent or plan. Patient denies any auditory, visual hallucinations and denies any paranoia or delusions. Patient thought process is improving. Patient denies any side effects from the medications and has been compliant with meds. Mental Status Exam: General Appearance: Patient appears to be stated age, fair hygiene and grooming, casually dressed. Behavior: Patient is seated without any agitated behavior. Speech: Patient's speech is fluent and nonpressured. hyperverbal, mildly improving Mood/Affect: Patient reports their mood is "good", affect is congruent and constricted Suicidality/Homicidality: Patient denies having any homicidal ideation intent or plan. Denies any suicidal ideations intent or plan Perceptions: Patient denies any visual hallucinations and denies any auditory hallucinations Though content/process: improving Memory and concentration: AOX3, grossly intact for the purposes of this session. Judgment and insight: poor, mildly improving Assessment: bipolar disorder, manic episode, without psychotic features cannabis use disorder Nicotine dependence Plan: -Patient continues to meet criteria for inpatient psychiatric admission for symptom stabilization and safety. Patient has signed [adult voluntary form and medication consent and was placed in patient's chart. -Medications: increase trazodone 150mg qhs prn for sleep, increase seroquel 100mg daily + 400mg qhs for mood stabilization, increase lamictal 50mg bid for m ood stabilization/anxiety. Patient informed to watch for a rash, and was instructed to let documentation writer or nursing staff know if she noticed a rash. melatonin 10 mg po qhs for sleep. -When necessary Ativan and Haldol for agitation/aggression -NRT - nicotine patch -SW on board for discharge planning. Encouraged the patient to participate in milieu. likely discharge tomorrow if patient continues to improve psychiatrically.
[2024-05-30] MEDS: lamoTRIgine 25 MG TAB PO ONE (12:50)
[2024-05-30] MEDS: ARTIFICIAL TEARS-HYPROMELLOSE DROPS 15 ML BTL BOTH EYES PRN (14:22)
[2024-05-30] MEDS: lamoTRIgine 25 MG TAB PO SCH (20:06)
[2024-05-30] MEDS: QUEtiapine 400 MG TAB PO SCH (20:06)
[2024-05-31 06:24] VITALS: BP 136/82; PULSE 84; RESP 19; TEMP 97.8
--- NOTE | 2024-05-31 10:18 | P.DS ---
Providers Date of admission: 05/24/24 21:15 Expected date of discharge: 05/31/24 Attending physician: Travis Danielle MD Consults: 05/24/24 21:23 Consult Physician Routine Consulting Provider: Juliet Santos Consult Reason/Comments: H&P for medical followup Do you want consulting provider notified?: Yes Primary care physician: Vic Porras - Discharge Diagnosis(es) (1) Bipolar disorder with severe missy Current Visit: Yes Status: Acute Priority: High (2) Cannabis use disorder Current Visit: Yes Status: Acute Priority: Medium (3) Nicotine dependence Current Visit: No Status: Acute Priority: Low Hospital Course: Admission HPI: Admission note was completed by Dr Walker "Ms. Marcelo is a 43 year old,, , white female, who lives in [place], [place] in a manufactured home. Chief Complaint: mom thought I was manic but I was just happy" History of Psychiatric Illness- Per chart, patient has been wandering around without her pants on and she has also been very argumentative as well as destroying property. On inerview, patient reports no complains except for anxiety. SHe states that she is "very rational and very sane" and that she "does not need to be here.". Reports "positive mood" Reports high energy, very high mood, trouble marion ntrating which she contributes to ADHD, low sleep, and irritability. She states, "I don't need medication, I want to be natural." Agreeable to taking seroquel." Hospital course: Upon admission to the unit patient was directable and agreeable to commence treatment and signed adult voluntary form. Patient got along well with other patients on the unit and followed unit protocol. Patient was compliant with the medications and denied any side effects throughout hospital course. Patient was started on Seroquel and increased to dose of 100 mg daily +400 mg nightly for mood stabilization, trazodone 150 mg nightly as needed for sleep, Lamictal increased to dose of 100 mg nightly for mood stabilization/anxiety, patient was informed of the possibility of a rash and to monitor her skin however she did not reporting this during hospitalization. Patient was also started on Eletone and 10 mg nightly for sleep. Patient spoke of her stressors and engaged in therapy both group and individual. Patient was also seen by medical team for history and physical exam. Throughout the course of the hospitalization patient gradually improved with regards to mood, anxiety, sleep and returned back to their baseline level of functioning. On the day of discharge patient denied any suicidal or homicidal ideations intent or plan denied any auditory or visual hallucinations. Patient endorsed wanting to live for her health and her future. The patient denied any access to guns or weapons. Patient denied any paranoia and did not endorse any delusions. Patient does have a significant history of substance abuse and was counseled on abstaining from all substances including alcohol and marijuana. Patient elected to do outpatient substance use treatment program through [facility]. Patient was also counseled on the medications and need for regular compliance and was encouraged to follow-up with their outpatient appointment for mental health and also for primary care. Prior to discharge a family meeting will be arranged by geriatric social work professor to answer any questions and ensure safety upon discharge. Mental status exam: General Appearance: Patient appears to be stated age is alert, pleasant, and cooperative. Patient is in no acute distress and has improved hygiene and grooming Behavior: Patient is calmly seated without any agitated behavior. Speech: Patient's speech is fluent and nonpressured. Mood/Affect: Patient reports their mood is "good", affect is congruent and euthymic. Suicidality/Homicidality: Patient denies having any suicidal or homicidal ideation intent or plan. Perceptions: Patient denies any auditory or visual hallucinations. Though content/process: There is no evidence of any delusional thought content and thought process is linear and goal-directed. More future oriented Memory and concentration: AOX3, grossly intact for the purposes of this session. Can spell "WORLD" backwards correctly. Judgment and insight: improved with guarded prognosis Impression: bipolar disorder, severe missy cannabis use disorder Nicotine dependence Plan: -Continue with discharge today as patient has improved and stabilized psychiatrically and is not currently an imminent threat to herself and/or others. Patient will remain at chronically elevated risk for harm to self and/or others due to her impulsivity and substance abuse. -Continue medications: Trazodone 150 mg nightly as needed for sleep, Seroquel 100 mg daily +400 mg nightly for mood stabilization, Lamictal 100 mg nightly for mood stabilization/anxiety, melatonin 100 mg daily at bedtime for sleep -Patient was counseled on the need for medication compliance and appropriate follow-up at mental health and also primary care for medical issues. Patient verbalized understanding and agreed. -Social work to arrange for and conduct family meeting to ensure safety upon discharge and answer any questions/concerns. Social work also to arrange for patients follow up appointments with [facility] for psychiatric care along with follow up with primary care provider. -Patient counseled on abstaining from recreational drugs and marijuana and alcohol. Was informed/educated on the adverse effects on their physical and me ntal health. Patient verbally agreed and understood. -Patient was instructed to return to the hospital or seek immediate medical care if their psychiatric or medical symptoms do worsen or reoccur. ] Allergies Allergy/AdvReac Type Severity Reaction Status Date / Time prednisone Allergy Unknown Verified 05/24/24 18:24 Laboratory Results WBC 7.5 k/uL (3.8-10.6) 05/25/24 06:45 RBC 4.38 m/uL (3.80-5.40) 05/25/24 06:45 Hgb 13.6 gm/dL (11.4-16.0) 05/25/24 06:45 Hct 42.6 % (34.0-46.0) 05/25/24 06:45 MCV 97.2 fL (80.0-100.0) 05/25/24 06:45 MCH 31.0 pg (25.0-35.0) 05/25/24 06:45 MCHC 31.9 g/dL (31.0-37.0) 05/25/24 06:45 RDW 14.4 % (11.5-15.5) 05/25/24 06:45 Plt Count 250 k/uL (150-450) 05/25/24 06:45 MPV 8.6 05/25/24 06:45 Neutrophils % 65 % 05/25/24 06:45 Lymphocytes % 24 % 05/25/24 06:45 Monocytes % 7 % 05/25/24 06:45 Eosinophils % 2 % 05/25/24 06:45 Basophils % 0 % 05/25/24 06:45 Neutrophils # 4.9 k/uL (1.3-7.7) 05/25/24 06:45 Lymphocytes # 1.8 k/uL (1.0-4.8) 05/25/24 06:45 Monocytes # 0.5 k/uL (0-1.0) 05/25/24 06:45 Eosinophils # 0.2 k/uL (0-0.7) 05/25/24 06:45 Basophils # 0.0 k/uL (0-0.2) 05/25/24 06:45 Sodium 140 mmol/L (137-145) 05/25/24 06:40 Potassium 4.1 mmol/L (3.5-5.1) 05/25/24 06:40 Chloride 108 mmol/L (98-107) H 05/25/24 06:40 Carbon Dioxide 25 mmol/L (22-30) 05/25/24 06:40 Anion Gap 7 mmol/L 05/25/24 06:40 BUN 12 mg/dL (7-17) 05/25/24 06:40 Creatinine 0.57 mg/dL (0.52-1.04) 05/25/24 06:40 Est GFR (CKD-EPI)AfAm >90 (>60 ml/min/1.73 sqM) 05/25/24 06:40 Est GFR (CKD-EPI)NonAf >90 (>60 ml/min/1.73 sqM) 05/25/24 06:40 Glucose 101 mg/dL (74-99) H 05/25/24 06:[address] Glu mg/dL 120 mg/dL 05/25/24 06:45 Hemoglobin A1c 5.8 % (<=6.0) 05/25/24 06:45 Calcium 9.7 mg/dL (8.4-10.2) 05/25/24 06:40 Total Bilirubin 0.8 mg/dL (0.2-1.3) 05/25/24 06:40 Conjugated Bilirubin 0.0 mg/dL (0.0-0.3) 05/25/24 06:40 Unconjugated Bilirubin 0.4 mg/dL (0.0-1.1) 05/25/24 06:40 Delta Bilirubin 0.4 mg/dL (0.0-0.2) H 05/25/24 06:40 AST 71 U/L (14-36) H 05/25/24 06:40 ALT 56 U/L (4-34) H 05/25/24 06:40 Alkaline Phosphatase 76 U/L (38-126) 05/25/24 06:40 Total Protein 6.7 g/dL (6.3-8.2) 05/25/24 06:40 Albumin 4.1 g/dL (3.5-5.0) 05/25/24 06:40 Triglycerides 112.00 mg/dL (0.00-149.00) 05/25/24 06:40 Cholesterol 278.00 mg/dL (0.00-200.00) H 05/25/24 06:40 LDL Cholesterol, Calc 203.9 mg/dL (0.0-131.0) H 05/25/24 06:40 VLDL Cholesterol, Calc 22.40 mg/dL (5.00-40.00) 05/25/24 06:40 HDL Cholesterol 51.70 mg/dL (40.00-60.00) 05/25/24 06:40 Cholesterol/HDL Ratio 5.38 Ratio 05/25/24 06:40 TSH 3.560 mIU/L (0.465-4.680) 05/25/24 06:40 Urine Color Colorless 05/24/24 14:38 Urine Appearance Clear (Clear) 05/24/24 14:38 Urine pH 6.5 (5.0-8.0) 05/24/24 14:38 Ur Specific [place] 1.004 (1.001-1.035) 05/24/24 14:38 Urine Protein Negative (Negative) 05/24/24 14:38 Urine Glucose (UA) Negative (Negative) 05/24/24 14:38 Urine Ketones Trace (Negative) H 05/24/24 14:38 Urine Blood Negative (Negative) 05/24/24 14:38 Urine Nitrite Negative (Negative) 05/24/24 14:38 Urine Bilirubin Negative (Negative) 05/24/24 14:38 Urine Urobilinogen <2.0 mg/dL (<2.0) 05/24/24 14:38 Ur Leukocyte Esterase Negative (Negative) 05/24/24 14:38 Urine HCG, Qual Not Detected (Not Detectd) 05/24/24 14:38 Urine Opiates Screen Not Detected (NotDetected) 05/24/24 14:38 Ur Oxycodone Screen Not Detected (NotDetected) 05/24/24 14:38 Urine Methadone Screen Not Detected (NotDetected) 05/24/24 14:38 Ur Barbiturates Screen Not Detected (NotDetected) 05/24/24 14:38 U Tricyclic Antidepress Not Detected (NotDetected) 05/24/24 14:38 Ur Phencyclidine Scrn Not Detected (NotDetected) 05/24/24 14:38 Ur Amphetamines Screen Not Detected (NotDetected) 05/24/24 14:38 U Methamphetamines Scrn Not Detected (NotDetected) 05/24/24 14:38 U Benzodiazepines Scrn Detected (NotDetected) H 05/24/24 14:38 Urine Cocaine Screen Not Detected (NotDetected) 05/24/24 14:38 U Marijuana (THC) Screen Detected (NotDetected) H 05/24/24 14:38 SARS-CoV-2 (PCR) Not Detected (Not Detectd) 05/24/24 17:46 Vital Signs Temp 97.8 F 05/31/24 06:00 Pulse 84 05/31/24 06:00 Resp 19 05/31/24 06:00 BP 136/82 05/31/24 06:00 Pulse Ox 100 05/31/24 06:00 FiO2 Patient Condition at Discharge: Stable Plan - Discharge Summary Discharge Rx Participant: Yes New Discharge Prescriptions: New lamoTRIgine [LaMICtal] 100 mg PO HS 30 Days #30 tab Melatonin 10 mg PO HS 30 Days #60 tab QUEtiapine [SEROquel] 400 mg PO HS 30 Days #30 tab Artificial Tears-Hypromellose [Artificial Tear Drops] 2 drops BOTH EYES QID PRN ml PRN Reason: Dry Eye(S) Nicotine 14Mg/24Hr Patch [Habitrol] 1 patch TRANSDERM DAILY 14 Days #14 patch Nicotine Gum (Polacrilex) [Nicorette] 2 mg BUCCAL Q4HR PRN pieceofgum PRN Reason: Nicotine Cravings QUEtiapine [SEROquel] 100 mg PO DAILY 30 Days #30 tab traZODone HCL 150 mg PO HS PRN 30 Days #30 tablet PRN Reason: Insomnia Albuterol Inhaler [Ventolin Hfa Inhaler] 2 puff INHALATION RT-Q4H PRN #0 each PRN Reason: Shortness Of Breath Or Wheezing Continue Fluticasone Nasal [place] [Flonase Nasal [place]] 1 spray EA NOSTRIL DAILY PRN PRN Reason: Allergy Symptoms Loratadine [Claritin] 10 mg PO DAILY PRN PRN Reason: Allergy Symptoms Omeprazole 20 mg PO DAILY PRN PRN Reason: Heartburn Discontinued FLUoxetine HCL [PROzac] 20 mg PO DAILY@1500 ALPRAZolam [Xanax] 0.5 mg PO Q6H PRN PRN Reason: Anxiety Discharge Medication List Fluticasone Nasal [place] [Flonase Nasal [place]] 1 spray EA NOSTRIL DAILY PRN 03/24/21 [History] Loratadine [Claritin] 10 mg PO DAILY PRN 03/24/21 [History] Omeprazole 20 mg PO DAILY PRN 05/24/24 [History] Albuterol Inhaler [Ventolin Hfa Inhaler] 2 puff INHALATION RT-Q4H PRN #0 each 05/31/24 [Rx] Artificial Tears-Hypromellose [Artificial Tear Drops] 2 drops BOTH EYES QID PRN ml 05/31/24 [Rx] Melatonin 10 mg PO HS 30 Days #60 tab 05/31/24 [Rx] Nicotine 14Mg/24Hr Patch [Habitrol] 1 patch TRANSDERM DAILY 14 Days #14 patch 05/31/24 [Rx] Nicotine Gum (Polacrilex) [Nicorette] 2 mg BUCCAL Q4HR PRN pieceofgum 05/31/24 [Rx] QUEtiapine [SEROquel] 100 mg PO DAILY 30 Days #30 tab 05/31/24 [Rx] QUEtiapine [SEROquel] 400 mg PO HS 30 Days #30 tab 05/31/24 [Rx] lamoTRIgine [LaMICtal] 100 mg PO HS 30 Days #30 tab 05/31/24 [Rx] traZODone HCL 150 mg PO HS PRN 30 Days #30 tablet 05/31/24 [Rx] Follow up Appointment(s)/Referral(s): [facility] [Outside] - 06/03/24 2:00 pm ( [facility] follow up appt scheduled for 06/03 at 2pm ) Vic Porras DO [Primary Care Provider] - 1-2 days Activity/Diet/Wound Care/Special Instructions: Avoid the use of street drugs and alcohol. Take all medications as prescribed. When you are in need of refills on your medications, please contact your outpatient medical provider and/or outpatient psychiatrist. Please go to your scheduled outpatient appointments for aftercare treatment. If symptoms return or become worse, call the crisis line at or and/or visit the nearest emergency room for assistance. National Suicide and Crisis Lifeline - call or text 988. Discharge Disposition: HOME SELF-CARE
== END 2024-05-31 12:15 | disposition home or self-care (01) | DRG 753 ==
LOC: EC 12:28 → 3MHU 21:15
PROVIDERS: ADMIT Psychiatry & Neurology Psychiatry; ATTEND Psychiatry & Neurology Psychiatry
DX: F31.9 Bipolar disorder, unspecified (principal); F41.1 Generalized anxiety disorder; F90.9 Attention-deficit hyperactivity disorder, unspecified type; J45.909 Unspecified asthma, uncomplicated; F41.0 Panic disorder [episodic paroxysmal anxiety]; F12.10 Cannabis abuse, uncomplicated; F17.200 Nicotine dependence, unspecified, uncomplicated; F20.9 Schizophrenia, unspecified; Z79.899 Other long term (current) drug therapy; Z87.440 Personal history of urinary (tract) infections; Z28.310 Unvaccinated for COVID-19; Z28.21 Immunization not carried out because of patient refusal; Z88.8 Allergy status to other drugs, medicaments and biological substances
CPT/HCPCS: 80053; 80061; 80306; 81003; 81025; 82075; 82248; 83036; 84443; 85025; 87635; 99285

== ENCOUNTER 2024-06-27 01:09 | Emergency (ER) | payer OTHER ==
[2024-06-27] MEDS ORDERED: IBUPROFEN 600 MG TAB PO ONE (05:41)
[2024-06-27] MEDS ORDERED: LORazepam 2 MG/ML INJ ONE (07:03)
[2024-06-27] MEDS ORDERED: NICOTINE 14MG/24HR PATCH TRANSDERM ONE (09:18)
[2024-06-27] MEDS ORDERED: LORazepam 1 MG TAB ONE (09:25)
== END 2024-06-27 12:55 ==
LOC: EC 01:09
CPT/HCPCS: 99285